=== PATIENT | female | born 1960 | race Caucasian/White ===

== ENCOUNTER 2016-10-26 09:52 | Inpatient (IN) | payer MEDICAID ==
[~2016-10-26] VITALS: Ht 165.1 cm; Wt 71.6 kg
[2016-10-26] VITALS (8 sets, daily range): BP systolic 145–179; BP diastolic 72–83; PULSE 90–109; RESP 14–20; TEMP 97–97.8; O2SAT 90–95; Ht 165.1 cm; Wt 71.6 kg
[~2016-10-26 09:52] MED LIST: ARIP20TA2 PO; ESTR0.6261 PO; ESZO3TAB PO; HYDR-2122 PO; LAMO200T6 PO; OXYC1TAB PO; PRAZ2CAP26 PO
--- OUTSIDE RECORDS SUMMARY | 2016-10-26 10:03 | XMS REPORT ---
Author Author Edith Taylor [facility] eClinicalWorks Address Unknown Phone Unavailable Care Team Providers Care Kiln Remover Name Role Phone Edith Taylor CP Unavailable Allergies, Adverse Reactions, Alerts Substance Reaction Event Type Septra Info Not Available Drug Allergy Codeine Sulfate side effects Drug Allergy Bactrim Info Not Available Drug Allergy Problems Problem Type Condition ICD-9 Code Onset Dates Condition Status Assessment Posttraumatic stress disorder 309.81 Active Assessment Dissociative identity disorder 300.14 Active Assessment Bipolar I disorder, most recent episode (or current) mixed, moderate 296.62 Active Assessment Borderline personality disorder 301.83 Active Medications Medication Code System Code Instructions Start Date End Date Status Dosage Prazosin HCl [facility] [address]-51 2 MG Orally take by mouth at bedtime Active 1 capsule Vistaril [facility] [address]-12 50 MG Orally by mouth three times a day PRN for anxiety (Take with a 25mg cap to=75mg up to 3 times a day PRN only Active 1 capsule Abilify [facility] [address]-57 20 MG Orally once a day in the morning Active 1 tablet Lamotrigine [facility] [address]-97 200 MG Orally Take by moth at 8am and H.S. for mood stabilization Active 1 tablet Premarin [facility] [address]-44 0.625mg Orally daily - dosage unknown Active 1 tablet Ventolin HFA [facility] [address]-34 108 (90 Base) MCG/ACT Inhalation every 4 hrs Active 2 puffs as needed BusPIRone HCl [facility] [address]-84 15 MG Orally Twice a day Active 1 tablet Lunesta [facility] [address]-58 3 MG Orally Once a day at bedtime Active 1 tablet immediately before bedtime HydrOXYzine Pamoate [facility] [address]-35 25 MG Orally three times a day as needed - only for anxiety. Take with 50mg caps to equal 75mg three times daily Active 1 capsule Oxycodone-Acetaminophen [facility] [address]-99 10-325 MG Orally three times daily PRN for pain Active 1 tablet as needed Procedures Procedure Coding System Code Date OFFICE VISIT, EST-MOD. COMPLEXITY (25 MIN) CPT-4 53678 Sep 02, 2014 Vital Signs Date/Time: Sep 02, 2014 Height 64.6 inches Weight 146 lbs Temperature 98.3 F Blood Pressure Diastolic 82 mm Hg Blood Pressure Systolic 133 mm Hg Cardiac Monitoring Heart Rate 104 Beats per Minute BMI 24.59 Index Respiratory Rate 16 per Minute Results No Known Results Summary Purpose eClinicalWorks Submission
--- OUTSIDE RECORDS SUMMARY | 2016-10-26 10:07 | XMS REPORT ---
Author Author Edith Taylor Organization [employer] Address Unknown Phone Unavailable Care Team Providers Care Social Sciences Chair Name Role Phone Edith Taylor CP Unavailable Allergies No Known Allergies Problems Problem Type Condition Code Onset Dates Condition Status Problem Bipolar disorder, current episode mixed, moderate F31.62 Active Problem Dissociative identity disorder F44.81 Active Problem Nicotine dependence, cigarettes, uncomplicated F17.210 Active Problem Post-traumatic stress disorder, chronic F43.12 Active Problem Borderline personality disorder F60.3 Active Problem Tobacco use disorder 305.1 Active Medications Medication Code System Code Instructions Start Date End Date Status Dosage Lexapro [facility] [address]-89 10 MG Orally Once a day Jun 09, 2015 1 tablet in the am for depression/anxiety Results No Known Results Summary Purpose eClinicalWorks Submission
--- OUTSIDE RECORDS SUMMARY | 2016-10-26 10:07 | XMS REPORT | Summary of Care ---
Author Author Gary Jean M.D. Organization Unknown Address [address] [place] [address] [place] [address] Phone Unavailable Care Team Providers Care Silk Hanger Name Role Phone Gary Jean M.D. 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 * Refills: 0 Cho M.D., Gary Luciano Start 15-Jul-2016 Active Prazosin HCl - 2 MG Oral Capsule 1-2 capsule by mouth at bedtime. * Refills: 0 Cho M.D., Gary Luciano Start 15-Jul-2016 Active BusPIRone HCl - 15 MG Oral Tablet 1/2 tab BID * Refills: 0 Cho M.D., Gary Luciano Start 15-Jul-2016 Active TraZODone HCl - 50 MG Oral Tablet 1-2 tablet at bedtime * Refills: 0 Cho M.D., Gary Luciano Start 15-Jul-2016 Active Abilify 30 MG Oral Tablet TAKE 1 TABLET DAILY. * Refills: 0 Cho M.D., Gary Luciano Start 15-Jul-2016 Active LamoTRIgine 200 MG Oral Tablet TAKE 1 TABLET TWICE DAILY. * Refills: 0 Cho M.D., Gary * Start 15-Jul-2016 Active Vistaril 50 MG Oral Capsule TAKE 1 CAPSULE 3 TIMES DAILY NEEDED. * Refills: 0 Cho M.D., Gary * Start 15-Jul-2016 Active Lexapro 10 MG Oral Tablet TAKE 1 TABLET DAILY. * Refills: 0 Cho M.D., Gary * Start 15-Jul-2016 Active Ciprofloxacin HCl - 500 MG Oral Tablet take 1 tablet before cysto procedure with Dr. Jean. * Quantity: 1 Refills: 0 Cho M.D., Gary * Start 02-Aug-2016 Active Allergies and Adverse Reactions Name Dates Details Bactrim (Allergy) Status: Active codeine (Allergy) Status: Active meloxicam (Allergy) Status: Active Septra TABS (Allergy) Status: Active Procedures Procedure Dates Details History of Neck Surgery History of Hysterectomy Procedures not documented Immunization Name Dates Details Immunizations not documented Family History Name Dates Details Family history of schizophrenia (V17.0, Z81.8) Status: Active Name Dates Details Family history of depression (V17.0, Z81.8) Status: Active Social History Name Dates Details - Status: Name Dates Details Smoker. current status unknown Vital Signs Date Test Result Details No Known Vitals to report Results Date Description Value Details Results not documented Plan of Care Name Dates Details Planned Observations Planned Goals not documented Instructions Name Dates Details Instructions not documented Encounters Appointment; Gary Jean M.D. Encounter Diagnosis: Problem not documented On 29-Jul-2016 10:00
--- OUTSIDE RECORDS SUMMARY | 2016-10-26 10:11 | XMS REPORT ---
Author Author Omi Rivera Organization [employer] Address Unknown Phone Unavailable Care Team Providers Care Server Programmer Name Role Phone Omi Rivera CP Unavailable Allergies No Known Allergies Problems [...] Instructions Start Date End Date Status Dosage Ventolin HFA [facility] [address]-98 108 (90 Base) MCG/ACT Inhalation every 4-6 hours as needed 2 puffs as needed Results No Known Results Summary Purpose eClinicalWorks Submission
--- OUTSIDE RECORDS SUMMARY | 2016-10-26 10:11 | XMS REPORT ---
Author Author Edith Taylor Organization [employer] Address Unknown Phone Unavailable Care Team Providers Care Acquisition Lead Name Role Phone Edith Taylor CP Unavailable [...] Start Date End Date Status Dosage Lexapro [facility] [address]-82 10 MG Orally Once a day Jun 09, 2015 1 tablet in the am for depression/anxiety Abilify [facility] [address]-95 30 MG Orally once a day in the morning 1 tablet Results No Known Results Summary Purpose eClinicalWorks Submission
--- OUTSIDE RECORDS SUMMARY | 2016-10-26 10:11 | XMS REPORT | Continuity of Care Document ---
Author Author [facility] Organization [facility] Address Unknown Phone Unavailable Allergies Medications Problems Procedures Results Encounters ACCT No. Visit Date/Time Discharge Status Pt. Type Provider Facility Loc./Unit Complaint [id number] 09/02/2015 00:00:00 2015 00:00:00 [facility] Emergency [facility] W.EDS
--- OUTSIDE RECORDS SUMMARY | 2016-10-26 10:13 | XMS REPORT ---
Author Author Omi Rivera Organization [employer] Address Unknown Phone Unavailable Care Team Providers Care Farm Equipment Maintenance Supervisor Name Role Phone Omi Rivera CP Unavailable Allergies, Adverse Reactions, Alerts Substance Reaction Event Type Septra Info Not Available Drug Allergy Meloxicam Swelling Drug Allergy Codeine Sulfate side effects Drug Allergy Bactrim Info Not Available Drug Allergy Problems Problem Type Condition Code Onset Dates Condition Status Assessment Hyperkalemia E87.5 Active Problem Tobacco use disorder 305.1 Active Problem Post-traumatic stress disorder, chronic F43.12 Active Problem Bipolar disorder, unspecified F31.9 Active Problem Major depressive disorder, single episode, unspecified F32.9 Active Problem Interstitial cystitis (chronic) without hematuria N30.10 Active Problem Dissociative identity disorder F44.81 Active Problem Borderline personality disorder F60.3 Active Problem Nicotine dependence, cigarettes, uncomplicated F17.210 Active Problem Bipolar disorder, current episode mixed, moderate F31.62 Active Assessment Bipolar disorder, unspecified F31.9 Active Assessment Encounter for immunization Z23 Active Assessment Encounter for screening for lipoid disorders Z13.220 Active Assessment Encounter for screening mammogram for malignant neoplasm of breast Z12.31 Active Assessment Major depressive disorder, single episode, unspecified F32.9 Active Assessment Interstitial cystitis (chronic) without hematuria N30.10 Active Assessment Tobacco use Z72.0 Active Medications Medication Code System Code Instructions Start Date End Date Status Dosage Vistaril [facility] [address]-49 50 MG Orally by mouth three times a day PRN for anxiety 1 capsule Trazodone HCl [facility] [address]-56 50 MG Orally Once a day Jun 09, 2015 1-2 tablet at bedtime as needed Abilify [facility] [address]-33 30 MG Orally once a day in the morning 1 tablet Lexapro [facility] [address]-59 10 MG Orally Once a day Jun 09, 2015 1 tablet in the am for depression/anxiety Premarin [facility] [id number] 0.625 TAKE 1 TABLET BY MOUTH DAILY BusPIRone HCl [facility] [address]-72 15 MG Orally Twice a day 1/2 tablet Prazosin HCl [facility] [address]-28 2 MG Orally take by mouth at bedtime 1-2 capsule Lamotrigine [facility] [address]-99 200 MG Orally Take by mouth at 8am and H.S. for mood stabilization 1 tablet Ventolin HFA [facility] [address]-68 108 (90 Base) MCG/ACT Inhalation every 4-6 hours as needed 2 puffs as needed Procedures Procedure Coding System Code Date ADMINISTRATION, 1ST IMMUNIZATION CPT-4 29211 Jul 11, 2016 OFFICE VISIT, EST-LOW COMPLEXITY (15 MIN.) CPT-4 17127 Jul 11, 2016 Fluzone/Fluarix IIV4 Pfree (age 3yr & older) CPT-4 23815 Jul 11, 2016 Vital Signs Date/Time: Jul 11, 2016 Temperature 97.8 F Height 64.6 in Weight 149.0 lbs Blood Pressure Diastolic 88 mm Hg Blood Pressure Systolic 148 mm Hg Cardiac Monitoring Heart Rate 90 /min BMI 25.10 Index Oximetry 96 % Respiratory Rate 16 /min Results No Known Results Immunizations Vaccine Administration Date Fluzone/Fluarix IIV4 Pfree (age 3yr & older) Jul 11, 2016 Summary Purpose eClinicalWorks Submission
--- OUTSIDE RECORDS SUMMARY | 2016-10-26 10:13 | XMS REPORT | Referral Summary ---
Author Author [facility] Organization [facility] Address Unknown Phone Unavailable Care Team Providers Care Epic Director Name Role Phone Tarik Stuart Primary Care Physician [phone] Encounter VC Date(s): 06/15/15 - 06/15/15 [facility], [address] [place] [address]- Discharge Diagnosis: Chronic insomnia Discharge Diagnosis: Lumbago Discharge Diagnosis: Hormone replacement therapy (HRT) Discharge Disposition: 01-Home or Self Care Attending Physician: Louis Stuart MD Admitting Physician: Louis Stuart MD Vital Signs Most recent to 1 oldest [Reference Range]: Temperature Tympanic 36.1 degC [36.6-38.1 degC] *LOW* (06/15/15 9:07 AM) Blood Pressure 112/56 mmHg [90-140/60-90 mmHg] (06/15/15 9:07 AM) Problem List Condition Effective Dates Status Health Status Informant Anxiety Active disorder(Confirmed) Bipolar Active disorder(Confirmed) Cervical spondylosis Active with myelopathy(Confirmed ) cervicalgia(Confirme Active d) Degenerative disc Active disease(Confirmed) Depression(Confirmed Active ) Low back Active pain(Confirmed) Lumbar Active spondylosis(Confirme d) Allergies, Adverse Reactions, Alerts Substance Reaction Severity Status nitrofurantoin Active sulfamethoxazole Active Medications Abilify See Instructions, Daily, 0 Refill(s) Start Date: 05/05/14 Status: Ordered lamoTRIgine 25 mg oral tablet tabs, Oral, BID, 0 Refill(s) Start Date: 05/05/14 Status: Ordered Lunesta 3 mg oral tablet 1 tabs, Oral, Bedtime (once a day), as needed for insomnia, 0 Refill(s) Start Date: 07/17/14 Status: Ordered Percocet 10/325 oral tablet 1 tabs, Oral, q8hr, as needed for pain, NEEDS MED CHECK APPT, # 50 tabs, 0 Refill(s) Start Date: 05/28/15 Status: Ordered prazosin 2 mg oral capsule 1 caps, Oral, Bedtime (once a day), 0 Refill(s) Start Date: 07/17/14 Status: Ordered Premarin 0.625 mg oral tablet See Instructions, TAKE 1 TABLET BY MOUTH EVERY DAY., # 30 unknown unit, 2 Refill (s), eRx: [facility] [id number], TAKE 1 TABLET BY MOUTH EVERY DAY. Start Date: 04/27/15 Status: Ordered Ventolin HFA 90 mcg/inh inhalation aerosol See Instructions, INHALE 2 PUFF BY INHALATION ROUTE EVERY 4 - 6 HOURS NEEDED , # 1 unknown unit, eRx: [facility] [id number], INHALE 2 PUFF BY INHALATION ROUTE EVERY 4 - 6 HOURS NEEDED Start Date: 05/29/15 Status: Ordered Results No data available for this section Immunizations No data available for this section Procedures Procedure Date Related Diagnosis Body Site Colonoscopy 12/15/11 Cystoscopy 03/25/11 Urethral dilatation and calibration 03/25/11 Surgery of neck with plates and screws 1999 Hysterectomy 1995 Surgery of neck with plates and screws 1992 Social History Social History Type Response Smoking Status Former smoker Assessment and Plan Extracted from: Title: Office Visit Note Author: Louis Stuart MD Date: 06/15/15 Assessment/Plan Chronic insomnia Hormone replacement therapy (HRT) Lumbago Plan: We discussed the need for yearly mammograms or routine mammograms since you are on HRT. Wehave encouraged you to make an appointment with the [facility]ogram. I discussed the need to find a new primary care doctor and thatyou needevery 3 month med checkups. Continue all current medications. Call if youhave any problems prior to day here at the clinic which is August 06 2015.
[2016-10-26] MEDS ORDERED: ALBUTEROL/IPRATROPIUM INHAL. 2.5mg-0.5mg/3ml Neb. AEROSOL ONE (10:15)
--- NOTE | 2016-10-26 10:15 | ERPDOC ---
Departure Disposition Decision Date: Oct 26, 2016 Disposition Decision Time: 12:56 Disposition: 02 TO [facility] Impression Impression Impression: Primary Impression: Pneumonia Pneumonia type: due to unspecified organism Laterality: right Lung location : lower lobe of lung Qualified Codes: J18.1 - Lobar pneumonia, unspecified organism Additional Impression: COPD exacerbation Severity: Moderate Condition: Improved Seen By: Physician only Referrals: DAVID HODGES DO Problems/Meds/Labs Reviewed?: Yes Medications reviewed and manag: Yes Follow up care ordered?: Yes Mental Status: Alert, Oriented HPI - Cough/URI General Chief Complaint: Cough,Fever,Flu,URI Stated Complaint: DIFF BREATHING Time Seen by Provider: 09:53 Source: patient (Patient presents to the ER with a 2-3 day conplaint of cough and congestion, with worsening exertional dyspnea. ) Exam Limitations: no limitations HPI - Cough/URI Occurred At: home Onset/Timing: Changing over time Duration: 1 week Pain/Severity Scale: Now & Worst: 0/10 Prior Episodes/Possible Cause: occasional episodes Modifying Factors: IMPROVES WITH: inhaler, oxygen, rest, WORSE WITH: activity, coughing Associated Symptoms: cough, fever/chills, other, shortness of breath, wheezing , DENIES: chest pain/soreness, dizziness, earache, facial pain, headache, lightheadedness, muscle aches, nasal congestion, nasal drainage, sinus infection , sore throat Allergies: Coded Allergies: Sulfa (Sulfonamide Antibiotics) (Verified Allergy, Intermediate, HIVES, ) codeine (Verified Allergy, Intermediate, NAUSEA,PAIN, 10/26/16) nitrofurantoin (Verified Allergy, Intermediate, HIVES,STOMACH PAIN, ) naproxen (Verified Allergy, Mild, NAUSEA, 10/26/16) Past History Past Medical History Female: other Musculoskeletal: back pain, neck pain Psychological: bipolar, depression, personality disorder Surgical History General: neck Reproductive/: hysterectomy Family History Family PMH: FOUND: other Vaccines Hx Influenza Vaccination: No Hx Pneumococcal Vaccination: No Social History Smoking Status: Current some day smoker Does patient use chewing tobac: No Second Hand Exposure: No Substance Use Type: does not use Alcohol Intake: none Marital Status: Single Sexuality: male partner Housing: house Household Members: significant other Service: No Occupational Hazard: No Advance Directives: Yes Full Code Record Review Pertinent history updated: Yes Review of Systems Constitutional Constitutional: fever, DENIES: chills Eyes Lids/Accessories: DENIES: erythema, swelling ENMT Ears: DENIES: erythema, pain Balance: DENIES: ataxia, vertigo Sinuses: DENIES: congestion, rhinorrhea Mouth/Throat: DENIES: sore throat Cardiovascular Cardiac: DENIES: chest pain, dyspnea on exertion, orthopnea Rhythm/Rate: DENIES: tachycardia Pulmonary Respiratory: DENIES: cough, dyspnea, sputum GI Upper Abdomen: DENIES: nausea, pain, vomiting Lower Abdomen: DENIES: constipation, diarrhea, pain General: DENIES: dysuria Musculoskeletal General: DENIES: cramps, pain, weakness Integumentary Skin: DENIES: color change, itching, rash Neurological General: DENIES: ataxia, change in strength, headache, numbness, poor coordination, seizures, syncope, vertigo, weakness Psychiatric Psychiatric: DENIES: anxiety, depression, nervousness Hematologic/Lymphatic Hematologic/Lymphatic: DENIES: anemia Allergic/Immunological Allergic/Immunoligical: DENIES: sneezing All other Systems All Other Systems: Reviewed and Negative Physical Exam General General Nourishment: well nourished, well developed, appears stated age, adult , thin General Body Habitus: well groomed Vitals and Pain First Documented Vital Signs Date Time Temp Pulse Resp B/P Pulse Ox O2 Delivery O2 Flow Rate FiO2 10/26/16 09:55 97.8 122 24 180/99 91 Room Air 10/26/16 09:58 2.00 Weight: Kilograms: 67.600 Height (feet): 5 Height (inches): 5.00 Triage Pain Scale: RN VS reviewed by Provider: Yes Eyes (brief) Eyes Brief: found: EOMI, PERRL ENMT (brief) ENMT Brief: FOUND: TM clear, TM good light reflex, mucosa moist, NOT FOUND: pharnyx erythema Neck (brief) Neck: FOUND: trachea midline, NOT FOUND: adenopathy, nuchal rigidity, tenderness, tracheal deviation Respiratory Inspection: FOUND: increased effort, NOT FOUND: asymmetry, audible stridor, audible wheezing Palpation: NOT FOUND: tenderness Auscultation: FOUND: decreased, rhonchi, wheezes Cardiovascular (brief) Cardiac: FOUND: regular rhythm, NOT FOUND: pedal edema, regular rate ( tachycardia) Capillary Refill: <2 sec Pulses: all distal extremities, equal, strong Abdomen (brief) Abdominal Brief: FOUND: bowel normo active x4, soft, NOT FOUND: distended, tender Lymphatic (brief) Lymphatic Brief: NOT FOUND: adenopathy Musculoskeletal (brief) Musculoskeletal Brief: NOT FOUND: spasm, tenderness Integumentary (brief) Integumentary Brief: FOUND: pink, warm Neurologic (brief) Neurological Brief: FOUND: CN w/o gross def to obs, gait w/o gross def to obs, motor-no gross deficits, sensory-no gross deficits, NOT FOUND: ataxia Psychiatric (brief) Psychiatric Brief: FOUND: alert, attentive, normal affect, oriented Differential Diagnoses Differential Diagnoses Considering: Acute Bronchitis, Asthma Exacerbation, COPD Exacerbation, Influenza, Pneumonia, URI, Viral Syndrome, Other Progress Results/Orders Orders Procedure Category Date Status Time Bmp - Basic Metabolic LAB 10/26/16 Complete Panel 10:09 Blood Gas, Arterial - LAB 10/26/16 Complete ABG 10:09 Probnp LAB 10/26/16 Complete 10:09 Cbc W/Auto LAB 10/26/16 Complete Diff-Reflex Manual 10:09 Blood Culture CLAUDIA 10/26/16 In Process 10:09 Troponin I W LAB 10/26/16 Complete Hemolysis Index 10:09 Influenza A/B Screen LAB 10/26/16 Complete 10:09 EKG EKG 10/26/16 Taken 10:09 Chest 1 View RAD 10/26/16 Resulted 10:09 Iv Lock (Ed Only) EDM 10/26/16 Transmitted 10:09 Albuterol/Ipratropium PHA 10/26/16 Complete (Duoneb) 10:15 Methylprednisolone PHA 10/26/16 Complete Sod Succ (Solu-Medrol 10:15 Oxygen Administration EDM 10/26/16 Transmitted 10:09 Lactate - Lactic Acid LAB 10/26/16 Complete Procalcitonin LAB 10/26/16 Complete 10:09 Normal Saline (Normal PHA 10/26/16 Complete Saline Iv) 10:[address] 10/26/16 Resulted Iohexol (Omnipaque) PHA 10/26/16 Complete 12:11 Normal Saline (Ns) PHA 10/26/16 Complete 12:11 Saline Flush (Iv PHA 10/26/16 Complete Flush) 12:11 Ceftriaxone (Rocephin) PHA 10/26/16 Complete 13:00 Doxycycline PHA 10/26/16 Complete (Vibramycin) 14:00 Lab Results Laboratory Tests Test 10/26/16 10:24 10/26/16 10:31 10/26/16 10:55 White Blood Count 19.6T/MM3 Red Blood Count 4.81M/MM3 Hemoglobin 14.6GM/DL Hematocrit 43.7% Mean Corpuscular Volume 90.9UM3 Mean Corpuscular Hemoglobin 30.4UUG Mean Corpuscular Hemoglobin Concent 33.4GM/DL RDW Standard Deviation 41.7FL Platelet Count 240T/MM3 Mean Platelet Volume 10.3UM3 Immature Granulocyte % (Auto) % Neutrophils (%) (Auto) % Lymphocytes (%) (Auto) % Monocytes (%) (Auto) % Eosinophils (%) (Auto) % Basophils (%) (Auto) % Absolute Immature Granulocyte (auto T/MM3 Absolute Neutrophils (auto) T/MM3 Absolute Lymphocytes (auto) T/MM3 Absolute Monocytes (auto) T/MM3 Absolute Eosinophils (auto) T/MM3 Absolute Basophils (auto) T/MM3 Neutrophils % (Manual) 81.0% Band Neutrophils % 7.0% Lymphocytes % (Manual) 8.0% Monocytes % (Manual) 4.0% Absolute Neutrophils (Manual) 15.9T/MM3 Band Neutrophils # 1.4T/MM3 Lymphocytes # (Manual) 1.6T/MM3 Monocytes # (Manual) 0.8T/MM3 Toxic Granulation 1+ Toxic Vacuolation 1+ Red Cell Morphology Comment Normal Turbidity < 20 Sodium Level 139MEQ/L Potassium Level 3.7MEQ/L Chloride Level 100MEQ/L Carbon Dioxide Level 25MEQ/L Anion Gap 14MEQ/L Blood Urea Nitrogen 11.0MG/DL Creatinine 0.7MG/DL Glomerular Filtration Rate Calc 87 BUN/Creatinine Ratio 16RATIO Glucose Level 148MG/DL Calculated Osmolality 270MOSM/KG Calcium Level 9.6MG/DL Icterus Index < 2 Troponin I < 0.012ng/ml OW-Iwr-X-Type Natriuretic Peptide 389PG/ML Plasma Lactate 0.9MMOL/L Procalcitonin 0.07NG/ML Chemistry Specimen Hemolysis 16 Influenza Type A Antigen Negative Influenza Type B Antigen Negative Arterial Blood pH 7.392 Arterial Blood Partial Pressure CO2 39MMHG Arterial Blood pO2 at Patient Temp 64MMHG Arterial Blood HCO3 24MEQ/L Arterial Blood Total CO2 25MEQ/L Arterial Blood Oxygen Saturation 92.0% Arterial Blood Base Excess -1.0MMOL/L Oxygen Delivery Method (LAB) Nasal cannula,liters Blood Gas Oxygen Liter Flow 2 Blood Gas Oxygen Percent Given Blood Gas Vent Rate Blood Gas Tidal Volume ML Medications Current ED Medications Albuterol/ Ipratropium (Duoneb) 3 ml O ONCE AEROSOL Last administered on 10:26; Start 10/26/16 at 10:15; Stop 10/26/16 at 10:16; Status DC Methylprednisolone Sodium Succinate 125 mg 125 mg O ONCE IV Last administered on 10/26/16 10:31; Start 10/26/16 at 10:15; Stop 10/26/16 at 10:16; Status DC Sodium Chloride (Normal Saline IV) 1,000 ml @ 0 mls/hr Q0M ONCE IV Last administered on 10/26/16 10:31; Start 10/26/16 at 10:30; Stop 10/26/16 at 10:31 ; Status DC Iohexol 1 bottle 1 bottle STK-MED ONCE .ROUTE ; Start 10/26/16 at 12:11; Stop at 12:12; Status DC Sodium Chloride (NS) 100 ml @ As Directed STK-MED ONCE .ROUTE ; Start 10/26/16 at 12:11; Stop 10/26/16 at 12:12; Status DC Sodium Chloride 10 ml 10 ml STK-MED ONCE .ROUTE ; Start 10/26/16 at 12:11; Stop 10/26/16 at 12:12; Status DC Sodium Chloride (Normal Saline IV) 1,000 ml @ 75 mls/hr [id number] IV Last administered on 10/27/16 16:49; Start 10/26/16 at 12:50; Stop 10/27/16 at 21:15 ; Status DC Progress Progress Patient resting comfortably, continues to complain of SOA Patient Oxygen saturation drop to approx 88% when off oxygen EKG EKG : Rate: >100 Rhythm: sinus [place]: normal QRS: normal Intervals: normal ST/T: non-specific changes Interpreted by: signing physician EKG ScImage/Pico EKG interpreted in ScImage/Pic: No Consult/PCP Consult/PCP : Physician Contacted: Dr. Hodges Time Arrived: 12:44 Discussion Details In ER to Evaluate the paitent Discussed patient examination, Labs, CXR, EKG Comments ADMIT Inpatient Doxycycline and Rocephin Xray Xray : Reason for Exam: Dyspnea Xray: CXR Portable Interpretation: Normal, Reviewed Written Report REGAN RENE DO Oct 26, 2016 10:15 at 12:12; Status DC Sodium Chloride (NS) 100 ml @ As Directed STK-MED ONCE .ROUTE ; Start 10/26/16 at 12:11; Stop 10/26/16 at 12:12; Status DC Sodium Chloride (Iv Flush) 10 ml STK-MED ONCE .ROUTE ; Start 10/26/16 at 12:11; Stop 10/26/16 at 12:12; Status DC Ceftriaxone Sodium 1 g 1 g O ONCE IM ; Start 10/26/16 at 13:00; Stop 10/26/16 at 13:01 Doxycycline Hyclate/Sodium Chloride (Vibramycin/NS) 250 ml @ 250 mls/hr Q12HR IV ; Start 10/26/16 at 21:00 Progress Progress Patient resting comfortably, continues to complain of SOA Patient Oxygen saturation drop to approx 88% when off oxygen EKG EKG : Rate: >100 Rhythm: sinus [place]: normal QRS: normal Intervals: normal ST/T: non-specific changes Interpreted by: signing physician EKG ScImage/Picomm EKG interpreted in ScImage/Pic: No Consult/PCP Consult/PCP : Physician Contacted: Dr. Hodges Time Arrived: 12:44 Discussion Details In ER to Evaluate the paitent Discussed patient examination, Labs, CXR, EKG Comments ADMIT Inpatient Doxycycline and Rocephin Xray Xray : Reason for Exam: Dyspnea Xray: CXR Portable Interpretation: Normal, Reviewed Written Report REGAN RENE DO Oct 26, 2016 10:15
--- OUTSIDE RECORDS SUMMARY | 2016-10-26 10:15 | XMS REPORT ---
Author Author Jalen Grewal [employer] Address Unknown Phone Unavailable Care Team Providers Care Implementation Services Analyst Name Role Phone Jalen Grewal CP Unavailable Allergies, Adverse Reactions, Alerts Substance Reaction Event Type Septra Info Not Available Drug Allergy Meloxicam Swelling Drug Allergy Codeine Sulfate side effects Drug Allergy Bactrim Info Not Available Drug Allergy Problems Problem Type Condition Code Onset Dates Condition Status Assessment Borderline personality disorder F60.3 Active Assessment Bipolar disorder, current episode mixed, moderate F31.62 Active Assessment Major depressive disorder, single episode, unspecified F32.9 Active Assessment Post-traumatic stress disorder, chronic F43.12 Active Assessment Dissociative identity disorder F44.81 Active Problem Nicotine dependence, cigarettes, uncomplicated F17.210 Active Problem Bipolar disorder, current episode mixed, moderate F31.62 Active Problem Major depressive disorder, single episode, unspecified F32.9 Active Problem Tobacco use disorder 305.1 Active Problem Post-traumatic stress disorder, chronic F43.12 Active Problem Dissociative identity disorder F44.81 Active Problem Borderline personality disorder F60.3 Active Medications Medication Code System Code Instructions Start Date End Date Status Dosage Prazosin HCl [facility] [address]-26 2 MG Orally take by mouth at bedtime 1-2 capsule Trazodone HCl [facility] [address]-57 50 MG Orally Once a day Jun 09, 2015 1-2 tablet at bedtime as needed Lamotrigine [facility] [address]-99 200 MG Orally Take by mouth at 8am and H.S. for mood stabilization 1 tablet Premarin [facility] 79803436107 0.625 TAKE 1 TABLET BY MOUTH DAILY BusPIRone HCl [facility] [address]-51 15 MG Orally Twice a day 1/2 tablet Lexapro [facility] [address]-28 10 MG Orally Once a day Jun 09, 2015 1 tablet in the am for depression/anxiety Vistaril [facility] [address]-63 50 MG Orally by mouth three times a day PRN for anxiety 1 capsule Abilify [facility] [address]-43 30 MG Orally once a day in the morning 1 tablet Ventolin HFA [facility] [address]-66 108 (90 Base) MCG/ACT Inhalation every 4-6 hours as needed 2 puffs as needed Procedures Procedure Coding System Code Date OFFICE VISIT, EST-MOD. COMPLEXITY (25 MIN) CPT-4 89405 Jun 03, 2016 Vital Signs Date/Time: Jun 03, 2016 Temperature 98.5 F Height 64.6 in Weight 147 lbs Blood Pressure Diastolic 76 mm Hg Blood Pressure Systolic 124 mm Hg Cardiac Monitoring Heart Rate 90 /min BMI 24.76 Index Respiratory Rate 18 /min Results No Known Results Summary Purpose eClinicalWorks Submission
--- OUTSIDE RECORDS SUMMARY | 2016-10-26 10:16 | XMS REPORT ---
Author Omi Sanchez Organization [employer] Address Unknown Phone Unavailable Care Team Providers Care Trestle Mainternance Laborer Name Role Phone Omi Rivera CP Unavailable Allergies No Known Allergies Problems Problem Type Condition Code Onset Dates Condition Status Assessment Hyperkalemia E87.5 Active Problem Tobacco use disorder 305.1 Active Problem Post-traumatic stress disorder, chronic F43.12 Active Assessment Interstitial cystitis (chronic) without hematuria N30.10 Active Assessment Encounter for screening for lipoid disorders Z13.220 Active Problem Bipolar disorder, unspecified F31.9 Active Problem Major depressive disorder, single episode, unspecified F32.9 Active Problem Interstitial cystitis (chronic) without hematuria N30.10 Active Problem Dissociative identity disorder F44.81 Active Problem Borderline personality disorder F60.3 Active Problem Nicotine dependence, cigarettes, uncomplicated F17.210 Active Problem Bipolar disorder, current episode mixed, moderate F31.62 Active Medications Medication Code System Code Instructions Start Date End Date Status Dosage Ventolin HFA [facility] [address]-87 108 (90 Base) MCG/ACT Inhalation every 4-6 hours as needed 2 puffs as needed Vistaril [facility] [address]-27 50 MG Orally by mouth three times a day PRN for anxiety 1 capsule Trazodone HCl [facility] [address]-24 50 MG Orally Once a day Jun 09, 2015 1-2 tablet at bedtime as needed Premarin [facility] 98877980401 0.625 TAKE 1 TABLET BY MOUTH DAILY Prazosin HCl [facility] [address]-12 2 MG Orally take by mouth at bedtime 1-2 capsule Lamotrigine [facility] [address]-00 200 MG Orally Take by mouth at 8am and H.S. for mood stabilization 1 tablet Lexapro [facility] [address]-98 10 MG Orally Once a day Jun 09, 2015 1 tablet in the am for depression/anxiety Abilify [facility] [address]-67 30 MG Orally once a day in the morning 1 tablet BusPIRone HCl [facility] [address]-80 15 MG Orally Twice a day 1/2 tablet Procedures Procedure Coding System Code Date TSH CPT-4 06230 Jul 11, 2016 CREATININE-MICROALB/CREAT RATION URINE CPT-4 23747 Jul 11, 2016 COMPLETE CBC W/AUTO DIFF WBC CPT-4 67222 Jul 11, 2016 URINALYSIS WITH MICROSCOPIC CPT-4 67291 Jul 11, 2016 MICROALBUMIN- MICRO ALB/CREAT RATIO [facility]-4 76201 Jul 11, 2016 COMPREHENSIVE METABOLIC PANEL [facility]-4 63136 Jul 11, 2016 Results Name Result Date Reference Range Unit Abnormality Flag TSH ----TSH 0.79 [id number] 0.35-4.94 uIU/mL Micro Albumin/Creatinine Ratio, Urine ----Creatinine mg/dL, Urine 22 59204827 mg/dL ----Alb/Creat Ratio, Urine NA [id number] 0.0-29.0 mg/g ----Albumin mg/dL, Urine <0.5 40267909 0.0-1.7 mg/dL CBC With Platelet and Differential ----Absolute Eosinophils 0.13 58787053 0.00-0.50 10*3 ----Absolute Monocytes 0.65 55699375 0.30-1.00 10*3 ----Neutrophils 52 27730868 51-75 % ----Absolute Basophils 0.03 57050804 0.00-0.20 10*3 ----MPV 10.2 37152451 8.8-14.8 fL ----Monocytes 8 19075417 4-11 % ----RDW 11.7 16611285 11.5-14.5 % ----Lymphocytes 38 55068656 20-46 % ----MCHC 34.1 48975574 32.0-36.0 g/dL ----MCH 30.3 52336103 27.0-32.0 pg ----MCV 89.0 03165699 82.0-99.0 fL ----Immature Granulocytes 0.1 46840491 0.0-1.0 % ----Platelet Count 309 76224285 150-400 K/uL ----Absolute Lymphocytes 3.13 91876497 0.80-3.30 10*3 ----Absolute Neutrophils 4.36 78939416 1.90-7.00 10*3 ----Eosinophils 2 51302209 0-4 % ----Basophils 0 26405378 0-2 % ----WBC 8.3 32493728 4.8-10.8 K/uL ----RBC 4.62 15655175 4.00-5.20 10*6/uL ----HGB 14.0 67402405 12.0-16.0 g/dL ----HCT 41.1 34642994 37.0-47.0 % Comprehensive Metabolic Panel (CMP) ----Chloride 101 61552843 99-111 mEq/L ----Potassium 3.8 85185303 3.5-5.2 mEq/L ----Albumin 4.7 47135695 3.5-5.0 g/dL ----CO2 30 53256175 22-31 mEq/L ----Alkaline Phosphatase 81 20737321 40-150 U/L ----Protein 7.0 75749936 6.1-7.7 g/dL ----Bilirubin Total 0.6 68433710 0.2-1.2 mg/dL ----Anion Gap 8 15333803 3-20 ----Calcium 9.7 09518066 8.9-10.5 mg/dL ----Globulin 2.3 51002641 1.8-4.0 g/dL ----Sodium 139 08475525 135-144 mEq/L ----BUN 9 31987325 10-20 mg/dL L ----ALT (SGPT) 30 89864754 0-55 U/L ----AST (SGOT) 23 27731716 5-34 U/L ----Creatinine 0.63 13454562 0.57-1.11 mg/dL ----Glucose 119 68642604 70-99 mg/dL H Urinalysis with Microscopic ----Bilirubin Negative 06344220 Negative ----Nitrites Negative 67795927 Negative ----Protein Negative 84334906 Negative ----Blood Negative 96559122 Negative ----Ketones Negative 26638596 Negative ----Glucose, Urine Negative 22299661 Negative ----Color Yellow 32854542 ----Appearance Clear 20160711 ----WBC, Urine 0-2 26017576 0-4 /HPF ----Epithelial Cells 2-5 33368903 /HPF ----pH 7.0 93312009 5.0-8.0 ----Urobilinogen 0.2 55117580 <1.0 mg/dL ----Leukocyte Esterase Negative 20160711 Negative ----RBC, Urine 0-4 90190204 0-4 /HPF ----Specific [place] 1.012 20160711 1.003-1.030 eGFR ----eGFR >60 57389666 >60 mL/min Summary Purpose eClinicalWorks Submission
--- OUTSIDE RECORDS SUMMARY | 2016-10-26 10:16 | XMS REPORT ---
Author Author Edith Taylor Organization [employer] Address Unknown Phone Unavailable Care Team Providers Care Muffler Tender Name Role Phone Edith Taylor CP Unavailable [...] Instructions Start Date End Date Status Dosage Danie [facility] [address]-69 30 MG Orally once a day in the morning 1 tablet Results No Known Results Summary Purpose eClinicalWorks Submission
--- OUTSIDE RECORDS SUMMARY | 2016-10-26 10:16 | XMS REPORT | Referral Summary ---
Author Author [facility] Organization [facility] Address Unknown Phone Unavailable Care Team Providers Care Director Agency & Strategic Partnerships Name Role Phone Tarik Stuart Primary Care Physician [phone] Encounter Date(s): 07/13/15 - 07/13/15 [facility], [address] [place] [address]- Discharge Diagnosis: Shortness of breath Discharge Diagnosis: Pneumonitis Discharge Diagnosis: Tobacco use Discharge Disposition: 01-Home or Self Care Attending Physician: Chani Osuna APRN Admitting Physician: Chani Osuna APRN Vital Signs Most recent to 1 oldest [Reference Range]: Temperature Tympanic 36.5 degC [36.6-38.1 degC] *LOW* (07/13/15 10:43 AM) Apical Heart Rate 87 bpm [60-100 bpm] (07/13/15 10:43 AM) Respiratory Rate 24 br/min [14-20 br/min] *HI* (07/13/15 10:43 AM) Blood Pressure 100/58 mmHg [90-140/60-90 mmHg] (07/13/15 10:43 AM) SpO2 86 % (07/13/15 10:43 AM) Problem List Condition Effective Dates Status [...] 0 Refill(s) Start Date: 05/05/14 Status: Ordered Lexapro 1 tabs, Oral, Daily, 0 Refill(s) Start Date: 07/13/15 Status: Ordered Percocet 10/325 oral tablet 1 tabs, Oral, q8hr, as needed for pain, # 50 tabs, 0 Refill(s) Start Date: 06/24/15 Status: Ordered prazosin 2 mg oral capsule 1 caps, Oral, Bedtime (once a day), 0 Refill(s) Start Date: 07/17/14 Status: Ordered predniSONE 10 mg oral tablet See Instructions, 4 tabs dly 3 days, 3 tabs dly 3 days, 2 tabs dly 3 days , 2 tabs dly 3 days, one tab dly 3 days then stop. with food, # 30 tabs, 0 Refill(s) Start Date: 07/13/15 Stop Date: 07/24/15 Status: Ordered Premarin 0.625 mg oral tablet See Instructions, TAKE 1 TABLET BY MOUTH EVERY DAY., # 30 unknown unit, 2 Refill (s), eRx: [facility] [id number], TAKE 1 TABLET BY MOUTH EVERY DAY. Start Date: 04/27/15 Status: Ordered Ventolin HFA 90 mcg/inh inhalation aerosol See Instructions, INHALE 2 PUFF BY INHALATION ROUTE EVERY 4 - 6 HOURS NEEDED , # 1 Each, 0 Refill(s), INHALE 2 PUFF BY INHALATION ROUTE EVERY 4 - 6 HOURS NEEDED Start Date: 07/13/15 Status: Ordered Zithromax Z-Robin 250 mg oral tablet 1 packets, Oral, Daily, as directed on package labeling, X 5 days, # 6 tabs, 0 Refill(s), Pharmacy: [facility] [id number], 1 packets Oral Daily,x5 days, Instr:as directed on package labeling Start Date: 07/13/15 Stop Date: 07/18/15 Status: Ordered Results No data available for [...] and Plan Extracted from: Title: Office Visit Author: Chani Osuna CUSTOMER ACCOUNTS ADVISOR Date: 07/13/15 Note-pneumonitis Assessment/Plan 1.Pneumonitis Chest x-ray obtained and reviewed. No infiltrates noted. Based on her symptoms and clinical findings will treat with Zithromax. Prednisone taper. Instructed on use and side effects. Take with food. Continue Robitussin or Mucinex as an expectorant. Recommend albuterol 2 puffs every 4-6 hours fairly routinely for the next few days. I would like to recheck her in 3-4 days. Sooner if not getting better. Ordered: Office Visit Level 4 Est 53097 2.Tobacco use Patient is cutting down to 2 cigarettes per day. Is planning to start class next week on smoking cessation. Ordered: Office Visit Level 4 Est 02093 3.Shortness of breath Ordered: Office Visit Level 4 Est 35791 Orders: albuterol, See Instructions, INHALE 2 PUFF BY INHALATION ROUTE EVERY 4 - 6 HOURS NEEDED, # 1 Each, 0 Refill(s), INHALE 2 PUFF BY INHALATION ROUTE EVERY 4 - 6 HOURS NEEDED azithromycin, 1 packets, Oral, Daily, as directed on package labeling, X 5 days, # 6 tabs, 0 Refill(s), Pharmacy: [facility] [id number], 1 packets Oral Daily,x5 days,Instr:as directed on package labeling predniSONE, See Instructions, 4 tabs dly 3 days, 3 tabs dly 3 days, 2 tabs dly 3 days, 2 tabs dly 3 days, one tab dly 3 days then stop. with food, # 30 tabs, 0 Refill(s)
--- OUTSIDE RECORDS SUMMARY | 2016-10-26 10:16 | XMS REPORT ---
Author Author Omi Rivera Organization [employer] Address Unknown Phone Unavailable Care Team Providers Care Foil Stamp Operator Name Role Phone Omi Rivera CP Unavailable [...] Instructions Start Date End Date Status Dosage Oxycodone-Acetaminophen [facility] [address]-37 10-325 MG Orally every 8 hours PRN for pain, december08-26-15. Sep 24, 2015 1 tablet as needed Results No Known Results Summary Purpose eClinicalWorks Submission
--- OUTSIDE RECORDS SUMMARY | 2016-10-26 10:16 | XMS REPORT ---
Author Author Edith Taylor [facility] eClinicalWorks Address Unknown Phone Unavailable Care Team Providers Care Box Car Bracer Name Role Phone Edith Taylor Unavailable Allergies No Known Allergies Problems Problem Type Condition ICD-9 Code Onset Dates Condition Status Problem Posttraumatic stress disorder 309.81 Active Problem Tobacco use disorder 305.1 Active Problem Bipolar I disorder, most recent episode (or current) mixed, moderate 296.62 Active Assessment Bipolar I disorder, most recent episode (or current) mixed, moderate 296.62 Active Problem Dissociative identity disorder 300.14 Active Problem Borderline personality disorder 301.83 Active Medications Medication Code System Code Instructions Start Date End Date Status Dosage Prazosin HCl [facility] [address]-21 2 MG Orally take by mouth at bedtime 1 capsule BusPIRone HCl [facility] [address]-07 15 MG Orally Twice a day 1 tablet Premarin [facility] [address]-82 0.625mg Orally daily - dosage unknown 1 tablet Vistaril [facility] [address]-53 50 MG Orally by mouth three times a day PRN for anxiety (Take with a 25mg cap to=75mg up to 3 times a day PRN only 1 capsule HydrOXYzine Pamoate [facility] [address]-21 25 MG Orally three times a day as needed - only for anxiety. Take with 50mg caps to equal 75mg three times daily 1 capsule Lamotrigine [facility] [address]-83 200 MG Orally Take by moth at 8am and H.S. for mood stabilization 1 tablet Abilify [facility] [address]-18 20 MG Orally once a day in the morning 1 tablet Ventolin HFA [facility] [address]-32 108 (90 Base) MCG/ACT Inhalation every 4 hrs 2 puffs as needed Oxycodone-Acetaminophen [facility] [address]-86 10-325 MG Orally three times daily PRN for pain 1 tablet as needed Lunesta [facility] [address]-26 3 MG Orally Once a day at bedtime 1 tablet immediately before bedtime Procedures Procedure Coding System Code Date COMPREHENSIVE METABOLIC PANEL CPT-4 29603 Sep 15, 2014 LIPID PANEL CPT-4 90624 Sep 15, 2014 COMPLETE CBC W/AUTO DIFF WBC CPT-4 95014 Sep 15, 2014 TSH WITH REFLEX T4 CPT-4 47613 Sep 15, 2014 HEPATIC FUNCTION PANEL CPT-4 89125 Sep 15, 2014 Results No Known Results Summary Purpose eClinicalWorks Submission
--- OUTSIDE RECORDS SUMMARY | 2016-10-26 10:16 | XMS REPORT | Summary of Care ---
Author Author Gary Jean M.D. Organization Unknown Address [address] [place] [address] [address], [place] [id number] Phone Unavailable Care Team Providers Care Garage Attendant Name Role Phone Gary Jean M.D. 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 * Refills: 0 Gary Jean M.D. * Start 15-Jul-2016 Active Lexapro 10 MG Oral Tablet TAKE 1 TABLET DAILY. * Refills: 0 Gary Jean M.D. * Start 15-Jul-2016 Active Allergies and Adverse Reactions Name Dates [...] unknown Vital Signs Date Test Result Details 29-Jul-2016 09:57 BP Systolic 142 mm[Hg] Status: Comments: Location: ; Position: BP Diastolic 90 mm[Hg] Status: Comments: Location: ; Position: Heart Rate 91 /min Status: Comments: Location: ; Height 65 in Status: Weight 145 lb Status: Body Mass Index Calculated 24.13 kg/m2 Status: Body Surface Area Calculated 1.73 m2 Status: Results Date Description Value Details Results not documented Plan of Care Name Dates Details Planned Observations Planned Goals not documented Planned Encounters Appointment; Provider: Gary Jean M.D. On 05-Aug-2016 09:30 Instructions Name Dates Details Instructions not documented Encounters Appointment; Gary Jean M.D. Encounter Diagnosis: Problem not documented On 29-Jul-2016 10:00
--- OUTSIDE RECORDS SUMMARY | 2016-10-26 10:16 | XMS REPORT ---
Author Author Edith Taylor Organization [employer] Address Unknown Phone Unavailable Care Team Providers Care Knitting Demonstrator Name Role Phone Edith Taylor CP Unavailable [...] Start Date End Date Status Dosage Vistaril [facility] [address]-17 50 MG Orally by mouth three times a day PRN for anxiety 1 capsule Prazosin HCl [facility] [address]-68 2 MG Orally take by mouth at bedtime 1-2 capsule Results No Known Results Summary Purpose eClinicalWorks Submission
--- OUTSIDE RECORDS SUMMARY | 2016-10-26 10:17 | XMS REPORT ---
Author Author Edith Taylor Organization [employer] Address Unknown Phone Unavailable Care Team Providers Care Display Department Manager Name Role Phone Edith Taylor CP Unavailable [...] Start Date End Date Status Dosage Danie [facility] [address]-26 30 MG Orally once a day in the morning 1 tablet Results No Known Results Summary Purpose eClinicalWorks Submission
--- OUTSIDE RECORDS SUMMARY | 2016-10-26 10:17 | XMS REPORT ---
Author Author Edith Taylor Organization [employer] Address Unknown Phone Unavailable Care Team Providers Care Physician Asst Name Role Phone Edith Taylor CP Unavailable Allergies No Known Allergies Problems Problem Type Condition Code Onset Dates Condition Status Problem Posttraumatic stress disorder 309.81 Active Problem Tobacco use disorder 305.1 Active Problem Bipolar I disorder, most recent episode (or current) mixed, moderate 296.62 Active Problem Dissociative identity disorder 300.14 Active Problem Borderline personality disorder 301.83 Active Medications Medication Code System Code Instructions Start Date End Date Status Dosage Lamotrigine [facility] [address]-75 200 MG Orally Take by mouth at 8am and H.S. for mood stabilization 1 tablet Results No Known Results Summary Purpose eClinicalWorks Submission
--- OUTSIDE RECORDS SUMMARY | 2016-10-26 10:17 | XMS REPORT ---
Author Author Edith Taylor Organization [employer] Address Unknown Phone Unavailable Care Team Providers Care Blender Conveyor Operator Name Role Phone Edith Taylor CP Unavailable [...] Start Date End Date Status Dosage Danie [facility] [address]-08 20 MG Orally once a day in the morning 1 tablet Results No Known Results Summary Purpose eClinicalWorks Submission
[2016-10-26] MEDS ORDERED: NORMAL SALINE 1,000 ML IV ONE (10:30)
[2016-10-26 10:43] LABS: HCT - HEMATOCRIT 43.7 % (36-46); HGB - HEMOGLOBIN 14.6 GM/DL (12-16); MEAN CORPUSCULAR HGB 30.4 UUG (26-34); MEAN CORPUSCULAR HGB CONC(MCHC 33.4 GM/DL (31-37); MEAN CORPUSCULAR VOLUME 90.9 UM3 (80-100); MEAN PLATELET VOLUME 10.3 UM3 (9.4-12.4); RED BLOOD COUNT 4.81 M/MM3 (4.00-5.20); WBC - WHITE BLOOD COUNT 19.6 T/MM3 (4.5-11.0)
--- NOTE | 2016-10-26 10:43 | NUR ---
ASSESS FEELS SOME BETTER AFTER RT AERO
[2016-10-26 10:53] LABS: ANION GAP 14 MEQ/L (5-15); BUN/CREATININE RATIO 16 RATIO (6-26); CALCIUM 9.6 MG/DL (8.4-10.2); CHLORIDE 100 MEQ/L (98-107); CO2 - CARBON DIOXIDE 25 MEQ/L (22-30); CREATININE 0.7 MG/DL (0.7-1.2); GLOMERULAR FILTRATION RATE 87; GLUCOSE 148 MG/DL (65-110); POTASSIUM 3.7 MEQ/L (3.6-5); SODIUM 139 MEQ/L (134-144)
[2016-10-26] MEDS ORDERED: BUSP15TA3 PO (10:55)
[2016-10-26] MEDS ORDERED: HYDR50CA5 PO (10:55)
[2016-10-26] MEDS ORDERED: ALBU18HF2 INH (10:55)
[2016-10-26] MEDS ORDERED: ARIP30TA11 PO (10:55)
[2016-10-26 10:56] LABS: INFLUENZA A AG SCREEN NEGATIVE (NEGATIVE); INFLUENZA B AG SCREEN NEGATIVE (NEGATIVE)
[2016-10-26] MEDS ORDERED: ESCI10TA47 PO (10:56)
[2016-10-26 11:01] LABS: PROBNP 389 PG/ML (0-175)
--- NOTE | 2016-10-26 11:12 | DI ---
Indication: ITS.REASON: dyspnea PROCEDURE: CHEST 1 VIEW: Encounter: Initial Comparison: June 01, 2010 Findings: Calcified granuloma again seen in the right upper lobe. Lungs are otherwise clear. No pleural effusion or pneumothorax. Heart size and mediastinal contours are within normal limits. Pulmonary vascularity is normal. Rounded sclerotic focus in the left proximal humeral diaphysis measuring 6 mm in size could represent a bone island. Cervical spinal fusion hardware again seen. Impression: No acute cardiopulmonary disease. .
--- NOTE | 2016-10-26 11:15 | NUR ---
STATUS PATIENT RESTING IN BED WITH NO DISTRESS NOTED. FAMILY AT BEDSIDE. PATIENT STATED, "I FEEL BETTER".
[2016-10-26 11:26] LABS: BAND NEUTROPHILS # 1.4 T/MM3; LYMPHOCYTES # (MANUAL) 1.6 T/MM3 (1-4.8); MONOCYTES # (MANUAL) 0.8 T/MM3 (0-0.8); NEUTROPHILS #(MANUAL)-ABSOLUTE 15.9 T/MM3 (1.8-7.7); TOTAL CELLS COUNTED 100 %
[2016-10-26 11:27] LABS: TOXIC GRANULATION 1+; TOXIC VACUOLATION 1+
--- NOTE | 2016-10-26 11:45 | NUR ---
ASSESSMENT PT DOESN'T FEEL MUCH BETTER. LUNGS DON'T SOUND ANY BETTER. PT AMB TO BR. SAO2 DROPPED TO 88% ON ROOM AIR. O2 RESTARTED & HAD TO BE INCREASED TO 3L/NC. MONITOR ST.
--- NOTE | 2016-10-26 11:55 | NUR ---
DR RENE IN
[2016-10-26] MEDS ORDERED: NORMAL SALINE 100 ML ONE (12:11)
[2016-10-26] MEDS ORDERED: IOHEXOL 350 MG/ML 75ml INJECTION ONE (12:11)
[2016-10-26] MEDS ORDERED: SALINE FLUSH 10ml SYRINGE ONE (12:11)
--- NOTE | 2016-10-26 12:27 | NUR ---
TO CT PER CART
--- NOTE | 2016-10-26 12:27 | NUR ---
ACTIVITY UP TO COMMODE.
--- NOTE | 2016-10-26 12:44 | NUR ---
RETURNED FROM CT
--- NOTE | 2016-10-26 12:45 | NUR ---
DR PATEL IN
[2016-10-26] MEDS ORDERED: CEFTRIAXONE 1 GRAM INJECTION IM ONE (13:00)
[2016-10-26] MEDS ORDERED: CEFTRIAXONE I.V. (ER USE ONLY) 1 G in NORMAL SALINE 100 ML IV ONE (13:00)
--- NOTE | 2016-10-26 13:01 | DI ---
Indication: ITS.REASON: Dyspnea / Hypoxemia PROCEDURE: CTA PULMONARY EMBOLI: Encounter: Initial Comparison: Chest x-ray from today Technique: Axial CT pulmonary angiographic phase images were performed through the chest after the administration of intravenous contrast. Coronal and Sagittal MIP reconstructed images were created and reviewed. Automated Exposure Control and Iterative Reconstruction dose reducing techniques were utilized. Contrast: Omnipaque 350 60 mL Findings: Pulmonary arteries: Exam is diagnostic to the subsegmental pulmonary arterial level. No filling defects identified to suggest a pulmonary embolus. Other findings: Respiratory motion artifact. Mild to moderate centrilobular emphysema. Calcified granuloma in the right upper lobe. Mild paraseptal emphysema. No consolidative pneumonia, pleural effusion or pneumothorax. No worrisome pulmonary nodule or mass. No axillary or mediastinal lymphadenopathy. Heart size is normal. No pericardial effusion. Great vessels are unremarkable. The upper abdomen shows no acute findings. Impression: No pulmonary embolus or acute intrathoracic disease process seen. Emphysema. .
--- OUTSIDE RECORDS SUMMARY | 2016-10-26 13:01 | XMS REPORT ---
Author Author Omi Rivera Organization [employer] Address Unknown Phone Unavailable Care Team Providers Care Conference Services Director Name Role Phone Omi Rivera CP Unavailable [...] Instructions Start Date End Date Status Dosage Premarin [facility] [address]-61 0.625mg Orally daily 1 tablet Results No Known Results Summary Purpose eClinicalWorks Submission
--- OUTSIDE RECORDS SUMMARY | 2016-10-26 13:01 | XMS REPORT ---
Author Author Edith Taylor Organization [employer] Address Unknown Phone Unavailable Care Team Providers Care Trim Die Maker Name Role Phone Edith Taylor CP Unavailable [...] Start Date End Date Status Dosage Danie [facility] [address]-24 30 MG Orally once a day in the morning 1 tablet Results No Known Results Summary Purpose eClinicalWorks Submission
--- OUTSIDE RECORDS SUMMARY | 2016-10-26 13:01 | XMS REPORT ---
Author Author Edith Taylor Organization [employer] Address Unknown Phone Unavailable Care Team Providers Care Executive Secretary Social Welfare Name Role Phone Edith Taylor CP Unavailable [...] Date End Date Status Dosage Vistaril [facility] [address]-27 50 MG Orally by mouth three times a day PRN for anxiety 1 capsule Results No Known Results Summary Purpose eClinicalWorks Submission
--- OUTSIDE RECORDS SUMMARY | 2016-10-26 13:01 | XMS REPORT ---
Author Author Edith Taylor Organization [employer] Address Unknown Phone Unavailable Care Team Providers Care Goldbeater Name Role Phone Edith Taylor CP Unavailable Allergies No Known Allergies Problems Problem Type Condition ICD-9 Code Onset Dates Condition Status Problem Posttraumatic stress disorder 309.81 Active Problem Tobacco use disorder 305.1 Active Problem Bipolar I disorder, most recent episode (or current) mixed, moderate 296.62 Active Problem Dissociative identity disorder 300.14 Active Problem Borderline personality disorder 301.83 Active Medications No Known Medications Results No Known Results Summary Purpose eClinicalWorks Submission
--- OUTSIDE RECORDS SUMMARY | 2016-10-26 13:02 | XMS REPORT ---
Author Author Edith Taylor [facility] eClinicalWorks Address Unknown Phone Unavailable Care Team Providers Care Tarper Name Role Phone Edith Taylor CP Unavailable Allergies, Adverse Reactions, Alerts Substance Reaction Event Type Septra Info Not Available Drug Allergy Codeine Sulfate side effects Drug Allergy Bactrim Info Not Available Drug Allergy Problems Problem Type Condition Code Onset Dates Condition Status Assessment Borderline personality disorder F60.3 Active Assessment Post-traumatic stress disorder, chronic F43.12 Active Assessment Dissociative identity disorder F44.81 Active Problem Bipolar disorder, current episode mixed, moderate F31.62 Active Problem Dissociative identity disorder F44.81 Active Problem Nicotine dependence, cigarettes, uncomplicated F17.210 Active Problem Post-traumatic stress disorder, chronic F43.12 Active Assessment Bipolar disorder, current episode mixed, moderate F31.62 Active Problem Borderline personality disorder F60.3 Active Problem Tobacco use disorder 305.1 Active Medications Medication Code System Code Instructions Start Date End Date Status Dosage Oxycodone-Acetaminophen [facility]NOTE 2] [address]-63 10-325 MG Orally three times daily PRN for pain 1 tablet as needed BusPIRone HCl [facility]NOTE 2] [address]-92 15 MG Orally Twice a day 1/2 tablet Trazodone HCl [facility]NOTE 2] [address]-81 50 MG Orally Once a day Jun 09, 2015 1-2 tablet at bedtime as needed Abilify [facility]NOTE 2] [address]-99 30 MG Orally once a day in the morning 1 tablet Prazosin HCl [facility]NOTE 2] [address]-76 2 MG Orally take by mouth at bedtime 1-2 capsule Lunesta [facility]NOTE 2] [address]-91 2 MG Orally Once a day at bedtime 1 tablet immediately before bedtime Ventolin HFA [facility]NOTE 2] [address]-03 108 (90 Base) MCG/ACT Inhalation every 4 hrs 2 puffs as needed Premarin [facility]NOTE 2] [address]-60 0.625mg Orally daily - dosage unknown 1 tablet Lamotrigine [facility]NOTE 2] [address]-87 200 MG Orally Take by mouth at 8am and H.S. for mood stabilization 1 tablet Lexapro [facility]NOTE 2] [address]-02 10 MG Orally Once a day Jun 09, 2015 1 tablet in the am for depression/anxiety Vistaril [facility]NOTE 2] [address]-58 50 MG Orally by mouth three times a day PRN for anxiety 1 capsule Procedures Procedure Coding System Code Date OFFICE VISIT, EST-MOD. COMPLEXITY (25 MIN) CPT-4 17390 Jun 09, 2015 Vital Signs Date/Time: Jun 09, 2015 Height 64.6 in Weight 131.8 lbs Temperature 98.6 F Blood Pressure Diastolic 88 mm Hg Blood Pressure Systolic 132 mm Hg Cardiac Monitoring Heart Rate 92 /min BMI 22.20 Index Respiratory Rate 20 /min Results No Known Results Summary Purpose eClinicalWorks Submission
--- OUTSIDE RECORDS SUMMARY | 2016-10-26 13:02 | XMS REPORT ---
Author Author Edith Taylor Organization [employer] Address Unknown Phone Unavailable Care Team Providers Care Optometric Assistant Name Role Phone Edith Taylor CP Unavailable [...]
--- OUTSIDE RECORDS SUMMARY | 2016-10-26 13:02 | XMS REPORT | Continuity of Care Document ---
Author Author [facility] Organization [facility] Address Unknown Phone Unavailable Allergies Medications Problems Procedures Results Encounters ACCT No. Visit Date/Time Discharge Status Pt. Type Provider Facility Loc./Unit Complaint [id number] 09/02/2015 00:00:00 2015 00:00:00 [facility] Emergency [facility] W.EDS
--- OUTSIDE RECORDS SUMMARY | 2016-10-26 13:02 | XMS REPORT ---
Author Author Omi Rivera Organization [employer] Address Unknown Phone Unavailable Care Team Providers Care Cook Dessert Name Role Phone Omi Rivera CP Unavailable Allergies, Adverse Reactions, Alerts Substance Reaction Event Type Septra Info Not Available Drug Allergy Codeine Sulfate side effects Drug Allergy Bactrim Info Not Available Drug Allergy Problems Problem Type Condition Code Onset Dates Condition Status Assessment Bipolar disorder, unspecified F31.9 Active Assessment Major depressive disorder, single episode, unspecified F32.9 Active Assessment Elevated blood-pressure reading, without diagnosis of hypertension R03.0 Active Assessment Encounter for immunization Z23 Active Assessment Encounter for screening mammogram for malignant neoplasm of breast Z12.31 Active Problem Bipolar disorder, current episode mixed, moderate F31.62 Active Problem Dissociative identity disorder F44.81 Active Problem Nicotine dependence, cigarettes, uncomplicated F17.210 Active Problem Post-traumatic stress disorder, chronic F43.12 Active Assessment Nicotine dependence, unspecified, uncomplicated F17.200 Active Problem Borderline personality disorder F60.3 Active Problem Tobacco use disorder 305.1 Active Medications Medication Code System Code Instructions Start Date End Date Status Dosage Ventolin HFA [facility] [address]-27 108 (90 Base) MCG/ACT Inhalation every 4 hrs 2 puffs as needed Trazodone HCl [facility] [address]-84 50 MG Orally Once a day Jun 09, 2015 1-2 tablet at bedtime as needed Abilify [facility] [address]-41 30 MG Orally once a day in the morning 1 tablet Lamotrigine [facility] [address]-41 200 MG Orally Take by mouth at 8am and H.S. for mood stabilization 1 tablet BusPIRone HCl [facility] [address]-50 15 MG Orally Twice a day 1/2 tablet Prazosin HCl [facility] [address]-42 2 MG Orally take by mouth at bedtime 1-2 capsule Lexapro [facility] [address]-24 10 MG Orally Once a day Jun 09, 2015 1 tablet in the am for depression/anxiety Vistaril [facility] [address]-05 50 MG Orally by mouth three times a day PRN for anxiety 1 capsule Oxycodone-Acetaminophen [facility] [address]-12 10-325 MG Orally three times daily PRN for pain 1 tablet as needed Premarin [facility] [address]-44 0.625mg Orally daily - dosage unknown 1 tablet Procedures Procedure Coding System Code Date FLU VACCINE NO PRESERV 3 & > CPT-4 37856 Aug 18, 2015 ADMINISTRATION, 1ST IMMUNIZATION CPT-4 03037 Aug 18, 2015 OFFICE VISIT, SEAM CLOSER-LOW COMPLEXITY (30 MIN.) CPT-4 89528 Aug 18, 2015 Vital Signs Date/Time: Aug 18, 2015 Height 64.6 in Weight 135.12 lbs Temperature 97.7 F Blood Pressure Diastolic 82 mm Hg Blood Pressure Systolic 140 mm Hg Cardiac Monitoring Heart Rate 97 /min BMI 22.76 Index Oximetry 97 % Respiratory Rate 16 /min Results No Known Results Immunizations Vaccine Administration Date Influenza shot 4 y.o. and older Aug 18, 2015 Summary Purpose eClinicalWorks Submission
--- OUTSIDE RECORDS SUMMARY | 2016-10-26 13:02 | XMS REPORT ---
Author Author Edith Taylor Organization [employer] Address Unknown Phone Unavailable Care Team Providers Care Surgical First Assistant Name Role Phone Edith Taylor CP [...]
--- OUTSIDE RECORDS SUMMARY | 2016-10-26 13:02 | XMS REPORT ---
Author Author Edith Taylor Organization [employer] Address Unknown Phone Unavailable Care Team Providers Care Senior Court Office Assistant Name Role Phone Edith Taylor CP [...] Start Date End Date Status Dosage Lexapro [facility] [address]-55 10 MG Orally Once a day Jun 09, 2015 1 tablet in the am for depression/anxiety Results No Known Results Summary Purpose eClinicalWorks Submission
--- OUTSIDE RECORDS SUMMARY | 2016-10-26 13:02 | XMS REPORT ---
Author Author Edith Taylor [facility] eClinicalWorks Address Unknown Phone Unavailable Care Team Providers Care Horse Trader Name Role Phone Edith Taylor CP Unavailable Allergies, Adverse Reactions, Alerts Substance Reaction Event Type Septra Info Not Available Drug Allergy Codeine Sulfate side effects Drug Allergy Bactrim Info Not Available Drug Allergy Problems Problem Type Condition Code Onset Dates Condition Status Assessment Borderline personality disorder 301.83 Active Assessment Tobacco use disorder 305.1 Active Assessment Dissociative identity disorder 300.14 Active Problem Posttraumatic stress disorder 309.81 Active Problem Tobacco use disorder 305.1 Active Problem Bipolar I disorder, most recent episode (or current) mixed, moderate 296.62 Active Assessment Bipolar I disorder, most recent episode (or current) mixed, moderate 296.62 Active Assessment Posttraumatic stress disorder 309.81 Active Problem Dissociative identity disorder 300.14 Active Problem Borderline personality disorder 301.83 Active Medications Medication Code System Code Instructions Start Date End Date Status Dosage Prazosin HCl [facility] [address]-91 2 MG Orally take by mouth at bedtime 1-2 caps Oxycodone-Acetaminophen [facility] [address]-88 10-325 MG Orally three times daily PRN for pain 1 tablet as needed Abilify [facility] [address]-49 20 MG Orally once a day in the morning 1 tablet BusPIRone HCl [facility] [address]-09 15 MG Orally Twice a day 1/2 tablet Premarin [facility] [address]-87 0.625mg Orally daily - dosage unknown 1 tablet Vistaril [facility] [address]-50 50 MG Orally by mouth three times a day PRN for anxiety (Take with a 25mg cap to=75mg up to 3 times a day PRN only 1 capsule HydrOXYzine Pamoate [facility] [address]-60 25 MG Orally three times a day as needed - only for anxiety. Take with 50mg caps to equal 75mg three times daily 1 capsule Lamotrigine [facility] [address]-03 200 MG Orally Take by moth at 8am and H.S. for mood stabilization 1 tablet Lunesta [facility] [address]-00 2 MG Orally Once a day at bedtime 1 tablet immediately before bedtime Ventolin HFA [facility] [address]-70 108 (90 Base) MCG/ACT Inhalation every 4 hrs 2 puffs as needed Procedures Procedure Coding System Code Date OFFICE VISIT, EST-MOD. COMPLEXITY (25 MIN) CPT-4 89374 November 25, 2014 Vital Signs Date/Time: November 25, 2014 Height 64.6 in Weight 139.4 lbs Temperature 98.7 F Blood Pressure Diastolic 72 mm Hg Blood Pressure Systolic 116 mm Hg Cardiac Monitoring Heart Rate 98 /min BMI 23.48 Index Respiratory Rate 20 /min Results No Known Results Summary Purpose eClinicalWorks Submission
[2016-10-26] MEDS: NORMAL SALINE 1,000 ML IV SCH (13:09)
--- NOTE | 2016-10-26 13:10 | NUR ---
IV SEEMS TO BE OCCLUDED. WILL HOLD ROCEPHIN UNTIL NEW SITE OBTAINED
--- NOTE | 2016-10-26 13:20 | NUR ---
REPORT TO ISAEL QUIGLEY
--- NOTE | 2016-10-26 13:25 | NUR ---
TRANSPORTED PER CART ON O2 TO RM 149. TOLERATED ACTIVITY WELL. STOOD TO TRANSFER. NOTED PT TO BE COUGHING LESS THAN UPON ARRIVAL. CARE ASSUMED BY ISAEL QUIGLEY
[2016-10-26] MEDS ORDERED: DOXYCYCLINE 100 MG in NORMAL SALINE 250 ML IV SCH (14:00)
[2016-10-26] MEDS ORDERED: ALBUTEROL/IPRATROPIUM INHAL. 2.5mg-0.5mg/3ml Neb. AEROSOL SCH (15:00)
[2016-10-26] MEDS: ACETAMINOPHEN 325 MG TABLET PO PRN (16:37)
--- NOTE | 2016-10-26 16:44 | NUR ---
ADMISSION NOTE PATIENT ARRIVED TO UNIT AT 1328 FROM ED, PRESENT AT BEDSIDE. PATIENT HAS IV IN RIGHT HAND WITH FLUIDS. PATIENT IS A&O X3, UP AD RYAN WITH NO ASSISTIVE DEVICES, AND ON A CARDIAC DIET. SCDS AND EDILMA HOSE ORDERED. PATIENT COMPLAINS OF FEELINGS OF WEAKNESS AND PAIN OF A 8/10 IN HER BACK AND HEAD. TELE AND UA ORDERED, RESPIRATORY PANEL COLLECTED. PRN PAIN MED GIVEN FOR PAIN IN HEAD AND BACK. PT ON O2 AT 3L. PT HAS A HX OF SMOKING. READING GLASSES LOCATED WITH PATIENT IN PURSE. PURSE AND BELONGINGS IN ROOM. PATIENT DID NOT BRING ANY HOME MEDS WITH HER AT THIS TIME. PATIENT IN HOSPITAL GOWN AND RESTING IN BED. ORIENTATED TO ROOM, CALL LIGHT, AND ORDERING SYSTEM. CELLPHONE AND METAL FURRER WITH PATIENT AT BEDSIDE. CALL LIGHT WITHIN REACH.
--- NOTE | 2016-10-26 17:00 | NUR ---
Received report Patient is resting in room with lights off and door closed. No concerns reported.
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
[2016-10-26 17:26] LABS: INR 0.98 (0.76-1.04); PROTHROMBIN TIME 10.7 SEC (9.31-12.49); PTT 34.4 SEC (24-36)
[2016-10-26 17:28] LABS: ALBUMIN/GLOBULIN RATIO 1.3 RATIO (1.1-2.2); ALKALINE PHOSPHATASE 85 U/L (38-126); ALT (SGPT) 32 U/L (9-52); AST (SGOT) 20 U/L (14-36); MAGNESIUM 1.8 MG/DL (1.6-2.3)
[2016-10-26 17:50] LABS: PHOSPHORUS 2.8 MG/DL (2.5-4.5)
[2016-10-26 18:14] LABS: BLOOD, URINE NEGATIVE (NEGATIVE); COLOR,URINE YELLOW (YELLOW); LEUKOCYTE ESTERASE ,URINE NEGATIVE (NEGATIVE); NITRITE,URINE NEGATIVE (NEGATIVE); UROBILINOGEN,URINE 0.2 EU/DL (NORMAL)
[2016-10-26] MEDS: DOXYCYCLINE 100 MG TABLET PO SCH (18:24)
[2016-10-26 18:25] LABS: BACTERIA,URINE TRACE (NEGATIVE); RBC,URINE 0-1 /HPF (0-3); SQUAMOUS EPITHELIAL CELL,UR 0-5
[2016-10-26] MEDS: NICOTINE 7 MG PATCH TD SCH (18:28)
--- NOTE | 2016-10-26 18:54 | NUR ---
EOS Patient is resting in bed with lights off. No apparent distress noted at this time. UA and sputum have been collected this evening.
--- NOTE | 2016-10-26 20:06 | NUR ---
Rests in bed. Coughing. Pt. reports cough productive of yellowish/greenish sputum sometimes. NS infuses at 75 cc/hr. Drinking water. Denies feeling nauseated. Afebrile at this time. Pt. does report having "hot flashes".
[2016-10-26] MEDS: ALBUTEROL/IPRATROPIUM INHAL. 2.5mg-0.5mg/3ml Neb. AEROSOL SCH (20:59)
[2016-10-26] MEDS: LAMOTRIGINE 200 MG TABLET PO SCH (21:50)
[2016-10-26] MEDS: PRAZOSIN 1 MG CAPSULE PO SCH (21:50)
[2016-10-26] MEDS: BENZONATATE 200 MG CAPSULE PO SCH (21:50)
[2016-10-27] VITALS (11 sets, daily range): BP systolic 128–151; BP diastolic 67–72; PULSE 93–119; RESP 18–20; TEMP 97–97.6; O2SAT 90–96
[2016-10-27] MEDS: ACETAMINOPHEN 325 MG TABLET PO PRN ×3 (00:22→18:28)
[2016-10-27] MEDS: HydrOXYzine 50 MG TABLET PO PRN ×2 (00:22→22:36)
--- NOTE | 2016-10-27 00:30 | NUR ---
TYLENOL 650 mg. given for H/A and Atarax 50 mg. given for anxiety. Assisted to bathroom.
[2016-10-27] MEDS: NORMAL SALINE 1,000 ML IV SCH ×3 (02:45→16:49)
[2016-10-27] MEDS: ALBUTEROL/IPRATROPIUM INHAL. 2.5mg-0.5mg/3ml Neb. AEROSOL SCH ×4 (03:05→20:45)
[2016-10-27 05:31] LABS: ALBUMIN 3.6 G/DL (3.5-5.0); ALBUMIN/GLOBULIN RATIO 1.2 RATIO (1.1-2.2); ALKALINE PHOSPHATASE 78 U/L (38-126); ALT (SGPT) 27 U/L (9-52); ANION GAP 10 MEQ/L (5-15); AST (SGOT) 20 U/L (14-36); BUN/CREATININE RATIO 25 RATIO (6-26); CALCIUM 9.3 MG/DL (8.4-10.2); CHLORIDE 108 MEQ/L (98-107); CO2 - CARBON DIOXIDE 22 MEQ/L (22-30); CREATININE 0.4 MG/DL (0.7-1.2); GLOMERULAR FILTRATION RATE 166; GLUCOSE 262 MG/DL (65-110); POTASSIUM 3.2 MEQ/L (3.6-5); SODIUM 140 MEQ/L (134-144); TOTAL PROTEIN 6.5 G/DL (6.3-8.2)
[2016-10-27 05:37] LABS: HCT - HEMATOCRIT 37.9 % (36-46); HGB - HEMOGLOBIN 12.8 GM/DL (12-16); MEAN CORPUSCULAR HGB 30.3 UUG (26-34); MEAN CORPUSCULAR HGB CONC(MCHC 33.8 GM/DL (31-37); MEAN CORPUSCULAR VOLUME 89.8 UM3 (80-100); MEAN PLATELET VOLUME 10.7 UM3 (9.4-12.4); RED BLOOD COUNT 4.22 M/MM3 (4.00-5.20); WBC - WHITE BLOOD COUNT 15.9 T/MM3 (4.5-11.0)
--- NOTE | 2016-10-27 06:30 | NUR ---
SHIFT SUMMARY: Slept well during the night after Tylenol and Atarax given. Recieves IV Solu Medrol q 6 hrs. IV fluids of NS infuse at 75 cc/hr. Cough continues. No chest pain c/o. Telemetry monitored. Sinus Rhythum.
[2016-10-27 06:35] LABS: BAND NEUTROPHILS # 1.1 T/MM3; LYMPHOCYTES # (MANUAL) 1.9 T/MM3 (1-4.8); MONOCYTES # (MANUAL) 0.2 T/MM3 (0-0.8); NEUTROPHILS #(MANUAL)-ABSOLUTE 12.7 T/MM3 (1.8-7.7); TOTAL CELLS COUNTED 100 %
--- NOTE | 2016-10-27 08:00 | NUR ---
Report received Patient is alert and oriented. Continues NS 75ml/hr per PIV at this time. NO concerns noted at this time.
[2016-10-27] MEDS: DOXYCYCLINE 100 MG TABLET PO SCH ×2 (08:26→18:25)
[2016-10-27] MEDS: ARIPIPRAZOLE 15 MG TABLET PO SCH (08:26)
[2016-10-27] MEDS: LAMOTRIGINE 200 MG TABLET PO SCH ×2 (08:27→21:11)
[2016-10-27] MEDS: ESCITALOPRAM 10 MG TABLET PO SCH (08:27)
[2016-10-27] MEDS: NICOTINE 7 MG PATCH TD SCH (08:27)
[2016-10-27] MEDS: BENZONATATE 200 MG CAPSULE PO SCH ×3 (08:27→21:11)
[2016-10-27] MEDS: NICOTINE PATCH REMOVAL TD SCH (08:29)
--- NOTE | 2016-10-27 09:36 | NUR ---
JEREMI BLOOD VISITED PT. CM EXPLAINED ROLE AND PROVIDED CONTACT INFORMATION. PT PLANS TO RETURN HOME POST HOSPITAL STAY. PT IS AWARE THAT IF SHE NEEDS OXYGEN AT THE TIME OF D/C FROM [facility] THAT CM WILL HELP SET UP OXYGEN NEEDS. PT IS AWARE TO CONTACT CM IF NEEDS ARISE.
[2016-10-27] MEDS ORDERED: CEFTRIAXONE 1 G in NORMAL SALINE 100 ML IV SCH (13:00)
[2016-10-27] MEDS ORDERED: POTASSIUM CHLORIDE 20 MEQ TABLET PO ONE ×2 (13:00→18:00)
--- NOTE | 2016-10-27 13:54 | PNPDOC ---
Subjective Date DATE: 10/27/16 TIME: 13:35 Subjective overall patient doing maybe a bit better. cough a little improved. SOA the same when off oxygen but when on oxygen she's fine. no had mild headache yesterday without other neurologic manifestations which resolved with tylenol. no headaches now. no photophobia or meningeal symptoms. mild runny nose and clear rhinorrhea but no other URI symptoms. no fevers, chills overnight. no changes in sputum production. no hemoptysis since admission or brown sputum either. no new or worsening orthopnea, PND, edema. no chest pain on rest or exertion. no dizziness, syncope, near syncope. no ab pain, GERD symptoms, nausea, vomiting, diarrhea, constipation, bloody/black stools, dysuria, hematuria, flank pain, other urinary symptoms. mood stable from yesterday. no hallucinations, delusions, guero symptoms, depression symptoms and steroids haven't effected her chronic psychiatric comorbidity to this point. no events called on telemetry. no new issues otherwise at this time. Objective Vital Signs Vital signs Vital Signs Date Time Temp Pulse Resp B/P Pulse Ox O2 Delivery O2 Flow Rate FiO2 10/27/16 10:01 104 10/27/16 09:54 12 95 10/27/16 08:00 97.0 129/72 Nasal Cannula 3.00 Telemetry Rhythm: Sinus Rhythm, Sinus Tachycardia Height (Feet): 5 Height (Inches): 5.00 Weight (Kilograms): 69.600 General General Appearance: Alert, Orientated x 3, Cooperative, No Acute Distress Eyes (Brief) Eyes: NOT FOUND: scleral icterus, trauma ENMT (Brief) Comments mucous membranes moist at this time. Neck (Brief) Neck: FOUND: midline, NOT FOUND: JVD, tracheal deviation Comments no clinical evidence of meningitis at this time. Respiratory (Brief) Respiratory: FOUND: clear all rothman, equal bilaterally, symmetrical, NOT FOUND : rales, spasm, tenderness, wheezes Comments no crackles b/l at this time. moving air well. lung sounds heard in all lung rothman b/l at this time. no respiratory distress, retractions, accessory muscle use. Cardiovascular (Brief) Comments stable from previous. no changes. clinically well perfused in all 4 extremities at this time. legs symmetrical and compartments soft in LE's b/l at this time. no clinical evidence of acute or worsening neurovascular compromise b/l in LE's at this time. Abdomen (Brief) Abdominal: FOUND: BS normo active x4, soft (X4.), NOT FOUND: distended, hepatosplenomegaly, pulsatile mass, tender (X4.) Comments no guarding, rebound, rigidity. (Brief) Comments no tenderness over bladder area. Extremities (Brief) Extremity : Comments see above. Lymphatic (Brief) Lymphatic: NOT FOUND: lymphedema Musculoskeletal (Brief) Musculoskeletal: FOUND: extremities move equally, NOT FOUND: deformity, loss of motion Integumentary (Brief) Integumentary: FOUND: dry, pink, warm, NOT FOUND: lesions, rash Comments to uncovered areas. Neurologic (Brief) Comments no focal deficits grossly. Psychiatric (Brief) Psychiatric: FOUND: alert, attentive, normal affect, oriented Laboratory Laboratory Laboratory Tests 10/26/16 10:24 10/27/16 04:29 Laboratory Tests 10/26/16 10:24 10/27/16 04:29 EKG no new information at this time. Microbiology Microbiology Microbiology Date/Time Source Procedure Growth Status 10/26/16 10:25 Peripheral/Iv Start Blood Culture - Preliminary NO GROWTH AFTER 24 HOURS Resulted 10/26/16 10:24 Peripheral/Iv Start Blood Culture - Preliminary NO GROWTH AFTER 24 HOURS Resulted 10/26/16 18:36 Sputum Expectorated Sputum Gram Stain - Final Resulted 10/26/16 18:36 Sputum Expectorated Sputum Sputum Culture - Preliminary CULTURE INITIATED - RESULTS PENDING Resulted Radiology no new information at this time. Sepsis Diagnostic Criteria Additional Information Comments see previous notes for details. Assessment & Plan Assessment acute hypoxic respiratory failure from acute on chronic COPD exacerbation acute bronchitis, fevers, leukocytosis secondary to the above. hypokalemia hyperthyroid brown sputum and concern for hemoptysis, none since admission. chronic tobaccoism -continue inpatient, routine vitals with call parameters, oxygen as needed, I's and O's, daily weights, activity up with assist, cardiac diet, telemetry. on 3 liters of oxygen and will continue to ween. -mg, phos, coags, LFT's, respiratory PCR unremarkable. TSH low at 0.08. cbc's with generally stable cytopenias. CMP's generally stable from previous. -sputum cx and gram stain, blood cultures X2, echocardiogram pending. -cbc, cmp, free T3 and free T4 in the AM. -check mg, phos, UA, coags, LFT's, TSH, respiratory PCR, sputum culture and gram stain now. see above for other testing and results from this stay. -cbc and cmp in the AM. -continue IV solumedrol at 60mg IV q8hrs for now. continue PO doxycycline, PO tessalon yen schmidt scheduled, incentive spirometry, nicotine patch. replacing potassium orally. -d/c rocephin for now as no clinical evidence of pneumonia. would consider restarting if any further evidence of pneumonia would appear. -continue to hold home albuterol inhaler. bipolar depression anxiety insomnia -continue home abilify, lamictal, lexapro, vistaril prn and prazosin. -will need to watch for worsening of psychiatric symptoms while on steroids above. right now she's well controlled. all other chronic medical conditions stable and no changes to plan of care at this time. ppx -SCD's for DVT ppx. given recent mention of hemoptysis will not start pharmacologic DVT ppx for now. -continue PO diet above for GI ppx. -FULL CODE -dispo continue inpatient today. Code Status DAVID HODGES DO Oct 27, 2016 13:41
--- NOTE | 2016-10-27 18:30 | NUR ---
EOS Patient has been resting quietly in room. Complained of HERNANDEZ most of the day. Received Tylenol but did not get entirely relieved. Patient had a persistent cough which the patient thinks is the basis of her headache. No new concern reported today. Report to oncoming nurse.
[2016-10-27] MEDS: PRAZOSIN 1 MG CAPSULE PO SCH (21:16)
[2016-10-28] VITALS (8 sets, daily range): BP systolic 133–156; BP diastolic 74–75; PULSE 94–99; RESP 18–22; TEMP 96.6–97.6; O2SAT 93–96
[2016-10-28] MEDS: ACETAMINOPHEN 325 MG TABLET PO PRN ×4 (00:25→18:13)
[2016-10-28] MEDS: ALBUTEROL/IPRATROPIUM INHAL. 2.5mg-0.5mg/3ml Neb. AEROSOL SCH ×4 (02:50→20:42)
[2016-10-28 05:36] LABS: HCT - HEMATOCRIT 35.7 % (36-46); HGB - HEMOGLOBIN 11.9 GM/DL (12-16); MEAN CORPUSCULAR HGB 30.2 UUG (26-34); MEAN CORPUSCULAR HGB CONC(MCHC 33.3 GM/DL (31-37); MEAN CORPUSCULAR VOLUME 90.6 UM3 (80-100); MEAN PLATELET VOLUME 10.7 UM3 (9.4-12.4); RED BLOOD COUNT 3.94 M/MM3 (4.00-5.20); WBC - WHITE BLOOD COUNT 17.8 T/MM3 (4.5-11.0)
[2016-10-28 05:42] LABS: ALBUMIN 3.3 G/DL (3.5-5.0); ALBUMIN/GLOBULIN RATIO 1.2 RATIO (1.1-2.2); ALKALINE PHOSPHATASE 68 U/L (38-126); ALT (SGPT) 34 U/L (9-52); ANION GAP 7 MEQ/L (5-15); AST (SGOT) 21 U/L (14-36); BUN/CREATININE RATIO 28 RATIO (6-26); CALCIUM 9.3 MG/DL (8.4-10.2); CHLORIDE 111 MEQ/L (98-107); CO2 - CARBON DIOXIDE 22 MEQ/L (22-30); CREATININE 0.4 MG/DL (0.7-1.2); GLOMERULAR FILTRATION RATE 166; GLUCOSE 201 MG/DL (65-110); POTASSIUM 4.3 MEQ/L (3.6-5); SODIUM 140 MEQ/L (134-144)
[2016-10-28 05:57] LABS: FREE T4 (FREE THYROXINE)-BATCH 1.21 NG/DL (0.78-2.19)
[2016-10-28 05:58] LABS: T3 FREE - BATCH 2.02 PG/ML (2.77-5.27)
[2016-10-28 06:14] LABS: BAND NEUTROPHILS # 2.3 T/MM3; LYMPHOCYTES # (MANUAL) 1.6 T/MM3 (1-4.8); MONOCYTES # (MANUAL) 0.4 T/MM3 (0-0.8); NEUTROPHILS #(MANUAL)-ABSOLUTE 13.5 T/MM3 (1.8-7.7); TOTAL CELLS COUNTED 100 %
--- NOTE | 2016-10-28 06:39 | NUR ---
SHIFT SUMMARY: PT A&OX3, PLEASANT AND COOPERATIVE. PT SLEPT ON AND OFF DURING THE NIGHT, PT STATES SHE GETS A HEADACHE WHEN COUGHING TOO MUCH (PRN PAIN MEDICATION GIVEN, SEE EMAR) ATARAX GIVEN FOR ANXIETY, WHICH HELPS PT TO SLEEP. PT IS UP AT RYAN AND IS NOW IV LOCKED. PT IS ON 3L NC AND BECOMES SOA WHEN UP. TELEMETRY IS SINUS. BED ALARM ON, CALL LIGHT WITHIN REACH.
[2016-10-28] MEDS ORDERED: GLUCOSE ORAL GEL 40% 37.5 G TUBE PO PRN (08:45)
[2016-10-28] MEDS ORDERED: DEXTROSE 50% SYRINGE 50ml (Eq. 1 AMP) IV PRN (08:45)
[2016-10-28] MEDS ORDERED: INSULIN LISPRO 100 UNIT/ML SQ PRN (08:45)
[2016-10-28] MEDS: NICOTINE 7 MG PATCH TD SCH (09:26)
[2016-10-28] MEDS: NICOTINE PATCH REMOVAL TD SCH (09:27)
[2016-10-28] MEDS: BENZONATATE 200 MG CAPSULE PO SCH ×3 (09:29→20:51)
[2016-10-28] MEDS: LAMOTRIGINE 200 MG TABLET PO SCH ×2 (09:29→20:51)
[2016-10-28] MEDS: ARIPIPRAZOLE 15 MG TABLET PO SCH (09:29)
[2016-10-28] MEDS: ESCITALOPRAM 10 MG TABLET PO SCH (09:29)
[2016-10-28] MEDS: DOXYCYCLINE 100 MG TABLET PO SCH ×2 (09:29→18:11)
[2016-10-28] MEDS: CEFTRIAXONE 1 G in NORMAL SALINE 100 ML IV SCH (09:30)
[2016-10-28] MEDS ORDERED: NS 500 ML IV PRN (09:45)
--- NOTE | 2016-10-28 11:24 | DI ---
Indication: ITS.REASON: bilateral thyroid ultrasound. PROCEDURE: US THYROID: Encounter: Initial Comparison: CT angiogram of the chest dated October 26, 2016 Technique: Grayscale and color Doppler sonographic imaging of the thyroid gland was performed. Findings: Thyroid isthmus is within normal limits at 0.4 cm in diameter. Right thyroid lobe is homogeneous without focal nodule or mass. Left lobe is also homogeneous without discrete mass. Normal Doppler flow to both thyroid lobes. Right lobe measures 4 x 1.2 x 1.6 cm. Left lobe measures 3.9 x 1.3 x 1.3 cm. Impression: Normal exam. .
--- NOTE | 2016-10-28 12:27 | PNPDOC ---
Subjective Date DATE: 10/28/16 TIME: 10:06 Subjective no acute issues overnight. no events called on telemetry. patient doing much better she says. has had headache on and off. bifrontal and on the top of the head to some degree. no photophobia, neck rigidity or meningeal symptoms. no numbness/weakness/tingling anywhere. no focal neurologic deficits, cranial nerve symptoms, stroke symptoms, seizure symptoms. these are average in intensity for her. tylenol does help. breathing much improved and she's down to 1 liter oxygen. energy improved. no ear pain, sinus pain, sore throat. no fevers, chills, body aches. fatigue improving. no dizziness, syncope, chest pain. she denies SOA at rest or exertion now. no hemoptysis. no brown sputum since admission. no changes otherwise in sputum production. no orthopnea, PND , heart failure symptoms. no orthopnea, PND. no ab pain, GERD symptoms, nausea , vomiting, diarrhea, constipation, bloody/black stools, dysuria, hematuria, urinary frequency, flank pain, nocturia, other urinary symptoms. appetite good and eating and drinking well. no new issues otherwise at this time. Objective Vital Signs Vital signs Vital Signs Date Time Temp Pulse Resp B/P Pulse Ox O2 Delivery O2 Flow Rate FiO2 10/28/16 09:40 100 10/28/16 09:40 Nasal Cannula 1.00 10/28/16 09:40 93 10/28/16 09:16 97.6 18 133/74 Telemetry Rhythm: Sinus Rhythm, Sinus Tachycardia Height (Feet): 5 Height (Inches): 5.00 Weight (Kilograms): 72.600 General General Appearance: Alert, Orientated x 3, Cooperative, No Acute Distress Eyes (Brief) Eyes: FOUND: EOMI, PERRL, NOT FOUND: scleral icterus, trauma Comments no nystagmus. ENMT (Brief) Comments euvolemic clinically at this time. Neck (Brief) Neck: FOUND: midline, NOT FOUND: JVD, tracheal deviation Comments no photophobia. no clinical evidence of meningitis at this time. Respiratory (Brief) Respiratory: FOUND: clear all rothman, equal bilaterally, symmetrical, NOT FOUND : rales, spasm, tenderness, wheezes Comments no crackles. all findings bilateral. no respiratory distress, retractions, accessory muscle use. moving air well. lung sounds heard in all lung rothman b/ l at this time. Cardiovascular (Brief) Comments no changes from previous. stable. no new edema. legs symmetrical and compartments soft in LE's b/l at this time. no evidence of acute or worsening neurovascular compromise b/l in LE's at this time. Abdomen (Brief) Abdominal: FOUND: BS normo active x4, soft (X4.), NOT FOUND: distended, hepatosplenomegaly, pulsatile mass, tender (X4.) Comments no guarding, rebound, rigidity. (Brief) Comments no tenderness over bladder area. Extremities (Brief) Extremity : Comments see above. Lymphatic (Brief) Lymphatic: NOT FOUND: lymphedema Musculoskeletal (Brief) Musculoskeletal: FOUND: extremities move equally, NOT FOUND: deformity, loss of motion Integumentary (Brief) Integumentary: FOUND: dry, pink, warm, NOT FOUND: lesions, rash Comments to uncovered areas. Neurologic (Brief) Neurological: FOUND: DTR 2/4 all extremities, cranial 2-12 intact, motor ( normal and symmetrical b/l X4.), sensory (normal and symmetrical b/l X4.), NOT FOUND: facial droop, ptosis Comments see the above HPI. Psychiatric (Brief) Psychiatric: FOUND: alert, attentive, normal affect, oriented Laboratory Laboratory Laboratory Tests 10/26/16 10:24 10/27/16 04:29 10/28/16 05:00 Laboratory Tests 10/26/16 10:24 10/27/16 04:29 10/28/16 05:00 EKG no new information at this time. Microbiology Microbiology Microbiology Date/Time Source Procedure Growth Status 10/26/16 10:25 Peripheral/Iv Start Blood Culture - Preliminary NO GROWTH AFTER 24 HOURS Resulted 10/26/16 10:24 Peripheral/Iv Start Blood Culture - Preliminary NO GROWTH AFTER 24 HOURS Resulted 10/26/16 18:36 Sputum Expectorated Sputum Gram Stain - Final Resulted 10/26/16 18:36 Sputum Expectorated Sputum Sputum Culture - Preliminary CULTURE INITIATED - RESULTS PENDING Resulted Radiology see above and below. Sepsis Diagnostic Criteria Additional Information Comments no new information at this time. Assessment & Plan Assessment acute hypoxic respiratory failure from acute on chronic COPD exacerbation acute bronchitis, fevers, leukocytosis secondary to the above. steroid induced hyperglycemia dilutional anemia hypokalemia tension headaches hyperthyroid brown sputum and concern for hemoptysis, none since admission. chronic tobaccoism -continue inpatient, routine vitals with call parameters, oxygen as needed, I's and O's, daily weights, activity up with assist, cardiac diet, telemetry. on 3 liters of oxygen and will ween. will ambulate TID with assist. -cbc's with generally stable leukocytosis but increased bands, a mild dilutional anemia and otherwise stable. cmp with normal potassium, sugars in 100's to 200's and otherwise unremarkable. free T3 a bit low and free T4 normal. sputum cx with moderate GPC's in chains and otherwise unremarkable. see above for other testing and results from this stay. -blood cultures X2 from admission negative thus far but still officially pending. echocardiogram pending. sputum cx pending also. thyroid u/s pending. -cbc and cmp in the AM. -decrease IV solumedrol to 60mg q12hrs now. start humolog s/s, GLUBS, hypoglycemia protocol. restart IV rocephin. continue PO doxycycline, tesyen dow scheduled, incentive spirometry, nicotine patch and replace electrolytes as is needed. continue PO tylenol prn headaches. no clinical evidence of neurologic or meningitis symptoms associated with her headaches right now. -continue to hold home albuterol inhaler. bipolar depression anxiety insomnia -continue home abilify, lamictal, lexapro, vistaril prn and prazosin. -will need to watch for worsening of psychiatric symptoms while on steroids above. right now she's well controlled. all other chronic medical conditions stable and no changes to plan of care at this time. ppx -SCD's for DVT ppx. no hemoptysis or questionable hemoptysis since admission. coags look ok on admission. CT chest without concerning lesion for cause of hemoptysis. will start SQ lovenox today for DVT ppx at prophylactic dose. -continue PO diet above for GI ppx. -FULL CODE -dispo continue inpatient today. continue to ween oxygen. discharge hopefully to home tomorrow. Code Status DAVID HODGES DO Oct 28, 2016 10:15
[2016-10-28] MEDS: ENOXAPARIN 40 MG/0.4 ML INJECTION SQ SCH (14:03)
--- NOTE | 2016-10-28 18:39 | NUR ---
END OF SHIFT REPORT PATIENT A/OX3. 0.5 L O2. VITAL SIGNS STABLE. AFEBRILE. UP AD [facility]YAN. ADEQUATE URINARY OUTPUT. BM DURING THE SHIFT. PATIENT HAS AMBULATED DURING THE SHIFT. PATIENT C/O HEADACHE. PRN TYLENOL HAS BEEN GIVEN FOR HEADACHE. WILL CONTINUE TO MONITOR.
[2016-10-28] MEDS: PRAZOSIN 1 MG CAPSULE PO SCH (20:58)
[2016-10-28] MEDS: HydrOXYzine 50 MG TABLET PO PRN (22:43)
[2016-10-28] MEDS ORDERED: MENTHOL COUGH DROPS (RICOLA) MM ONE (23:15)
--- NOTE | 2016-10-28 23:15 | NUR ---
COUGH DROP: PT REQUESTED COUGH MEDICINE. CONTACTED DR. HODGES. HE ASKED ME TO PLACE A ONE TIME ORDER FOR RICOLA COUGH DROP. ORDER PLACED.
[2016-10-29] VITALS (8 sets, daily range): BP systolic 155–172; BP diastolic 77–83; PULSE 79–97; RESP 17–18; TEMP 95.9–97; O2SAT 93–97
[2016-10-29] MEDS: ACETAMINOPHEN 325 MG TABLET PO PRN ×2 (02:44→10:54)
[2016-10-29] MEDS ORDERED: ALBUTEROL HFA INHALER 8gm ORAL INH SCH (03:00)
[2016-10-29 05:12] LABS: BASOPHILS % (AUTO) 0.1 % (0-2); HCT - HEMATOCRIT 38.3 % (36-46); HGB - HEMOGLOBIN 12.6 GM/DL (12-16); IMMATURE GRANULOCYTE # (AUTO) 0.07 T/MM3 (0.00-0.03); IMMATURE GRANULOCYTE % (AUTO) 0.5 % (0.0-0.5); LYMPHOCYTES # (AUTO) 1.8 T/MM3 (1-4.8); LYMPHOCYTES % (AUTO) 13.2 % (23-45); MEAN CORPUSCULAR HGB 29.8 UUG (26-34); MEAN CORPUSCULAR HGB CONC(MCHC 32.9 GM/DL (31-37); MEAN CORPUSCULAR VOLUME 90.5 UM3 (80-100); MEAN PLATELET VOLUME 10.4 UM3 (9.4-12.4); MONOCYTES # (AUTO) 0.5 T/MM3 (0-0.8); MONOCYTES % (AUTO) 3.5 % (0-9.0); NEUTROPHILS #(AUTO)-ABSOLUTE 11.1 T/MM3 (1.8-7.7); NEUTROPHILS % (AUTO) 82.7 % (33-66); RED BLOOD COUNT 4.23 M/MM3 (4.00-5.20); WBC - WHITE BLOOD COUNT 13.4 T/MM3 (4.5-11.0)
--- NOTE | 2016-10-29 05:16 | NUR ---
SHIFT SUMMARY: PT A&OX3, PLEASANT AND COOPERATIVE. PT SLEPT ON AND OFF DURING THE NIGHT, PT STATES SHE GETS A HEADACHE WHEN COUGHING TOO MUCH (PRN TYLENOL GIVEN, SEE EMAR); ATARAX GIVEN FOR ANXIETY, WHICH HELPS PT TO SLEEP. PT IS UP AT [facility] AND IS IV LOCKED. PT IS ON 0.5 L NC AND BECOMES SOA WHEN UP; ON TELEMETRY. CALL LIGHT WITHIN REACH.
[2016-10-29 05:17] LABS: ALBUMIN 3.6 G/DL (3.5-5.0); ALBUMIN/GLOBULIN RATIO 1.3 RATIO (1.1-2.2); ALKALINE PHOSPHATASE 66 U/L (38-126); ALT (SGPT) 30 U/L (9-52); ANION GAP 6 MEQ/L (5-15); AST (SGOT) 21 U/L (14-36); BUN/CREATININE RATIO 24 RATIO (6-26); CALCIUM 9.6 MG/DL (8.4-10.2); CHLORIDE 107 MEQ/L (98-107); CO2 - CARBON DIOXIDE 27 MEQ/L (22-30); CREATININE 0.5 MG/DL (0.7-1.2); GLOMERULAR FILTRATION RATE 129; GLUCOSE 146 MG/DL (65-110); POTASSIUM 4.2 MEQ/L (3.6-5); SODIUM 140 MEQ/L (134-144); TOTAL PROTEIN 6.3 G/DL (6.3-8.2)
[2016-10-29] MEDS: NICOTINE 7 MG PATCH TD SCH (08:30)
[2016-10-29] MEDS: NICOTINE PATCH REMOVAL TD SCH (08:30)
[2016-10-29] MEDS: ENOXAPARIN 40 MG/0.4 ML INJECTION SQ SCH (08:31)
[2016-10-29] MEDS: DOXYCYCLINE 100 MG TABLET PO SCH (08:32)
[2016-10-29] MEDS: LAMOTRIGINE 200 MG TABLET PO SCH (08:32)
[2016-10-29] MEDS: ESCITALOPRAM 10 MG TABLET PO SCH (08:32)
[2016-10-29] MEDS: ARIPIPRAZOLE 15 MG TABLET PO SCH (08:32)
[2016-10-29] MEDS: BENZONATATE 200 MG CAPSULE PO SCH ×2 (08:32→14:50)
[2016-10-29] MEDS: CEFTRIAXONE 1 G in NORMAL SALINE 100 ML IV SCH (08:40)
[2016-10-29] MEDS ORDERED: ALBUTEROL INH.SOLN. 2.5mg/3ml (0.083%) Neb. AEROSOL SCH (09:00)
--- NOTE | 2016-10-29 14:44 | NUR ---
shift summary Weaned off of o2 sats 92 to 94 on room air. has a loose sounding cough. ivl leaked after anitbiotic infusing.
--- NOTE | 2016-10-29 14:47 | NUR ---
DR mathew here r.t.to do a walking oximetry on room air prior to discharge.
[2016-10-29] MEDS ORDERED: HYDR25TA85 PO (15:31)
[2016-10-29] MEDS ORDERED: PRAZ1CAP2 PO (15:31)
[2016-10-29] MEDS ORDERED: ALBU18HF2 ORAL INH (15:31)
[2016-10-29] MEDS ORDERED: DOXY100T2 PO (15:31)
[2016-10-29] MEDS ORDERED: BENZ200C36 PO (15:31)
[2016-10-29] MEDS ORDERED: CEFU500T68 PO (15:31)
[2016-10-29] MEDS ORDERED: PRED10TA PO (15:31)
--- NOTE | 2016-10-29 15:45 | NUR ---
SCRIPTS CALLED TO [facility]
--- NOTE | 2016-10-29 15:53 | PNPDOC ---
Subjective Date DATE: 10/29/16 TIME: 15:32 Subjective patient doing well. feels mostly back to baseline. she denies headaches, stroke symptoms, syncope, dizziness. ambulating well. SOA essentially gone. no wheezing. no URI symptoms. no photophobia or meningeal symptoms. no chest pain on rest or exertion. no hemoptysis, heart failure symptoms. no fevers, chills, body aches. energy improving. X1 bowel movement since last visit which was normal. eating and drinking and appetite are ok. no ab pain, GERD symptoms, nausea, vomiting, diarrhea, constipation, bloody/black stools, dysuria , hematuria, urinary frequency, flank pain, nocturia. mood has been good. ROS negative for hallucinations, delusions, guero, depression. no psychiatric changes from previous baseline. no events called on telemetry. no new issues otherwise at this time. Objective Vital Signs Vital signs Vital Signs Date Time Temp Pulse Resp B/P Pulse Ox O2 Delivery O2 Flow Rate FiO2 10/29/16 15:30 169/80 10/29/16 15:27 95.9 84 18 94 Room Air 10/29/16 07:49 0.50 Telemetry Rhythm: Sinus Rhythm, Sinus Tachycardia Height (Feet): 5 Height (Inches): 5.00 Weight (Kilograms): 71.600 General General Appearance: Alert, Orientated x 3, Cooperative, No Acute Distress Eyes (Brief) Comments no scleral icterus or trauma. ENMT (Brief) Comments euvolemic clinically at this time. mucous membranes moist. Neck (Brief) Comments no JVD. no clinical evidence of meningitis and no photophobia at this time. Respiratory (Brief) Respiratory: FOUND: clear all rothman, equal bilaterally Comments no rales, crackles, wheezes b/l at this time. moving air well. lung sounds heard normally in all lung field b/l at this time. no respiratory distress, retractions, accessory muscle use. Cardiovascular (Brief) Comments no changes from previous exam. patient clinically well perfused in all 4 extremities b/l at this time. no leg edema b/l and legs symmetrical b/l at this time. compartments soft in LE's b/l at this time. Abdomen (Brief) Abdominal: FOUND: BS normo active x4, soft (X4.) Comments non-tender X4. no distension. no hepatosplenomegally. no masses. (Brief) Comments no tenderness over bladder area. Extremities (Brief) Extremity : Comments see above. Lymphatic (Brief) Comments no lymphedema. Musculoskeletal (Brief) Comments no deformity or loss of motion. extremities move normally bilaterally. Integumentary (Brief) Integumentary: FOUND: dry, pink, warm Comments no rash or lesions to uncovered areas at this time. Neurologic (Brief) Comments no focal deficits grossly. Psychiatric (Brief) Psychiatric: FOUND: alert, attentive, normal affect, oriented Comments no clinical evidence of guero, depression, psychosis, bipolar at this time. stable fro psychiatric standpoint as compared to previous. Laboratory Laboratory Laboratory Tests 10/28/16 05:00 10/29/16 04:35 Laboratory Tests 10/28/16 05:00 10/29/16 04:36 EKG no new information at this time. Microbiology Microbiology Microbiology Date/Time Source Procedure Growth Status 10/26/16 18:36 Sputum Expectorated Sputum Gram Stain - Final Resulted 10/26/16 18:36 Sputum Expectorated Sputum Sputum Culture - Preliminary CULTURE INITIATED - RESULTS PENDING Resulted Radiology no new information at this time. Sepsis Diagnostic Criteria Additional Information Comments see previous notes for details. Assessment & Plan Assessment acute hypoxic respiratory failure from acute on chronic COPD exacerbation acute bronchitis, fevers, leukocytosis secondary to the above. steroid induced hyperglycemia dilutional anemia hypokalemia tension headaches hyperthyroid brown sputum and concern for hemoptysis, none since admission. chronic tobaccoism -rest and exercise oximetry pending. pending this patient to be discharged to home. see discharge summary and orders for details. -cbc's with generally stable anemia and improving leukocytosis and resolved bandemia and otherwise unremarkable. cmp's and GLUBS with blood sugars in 100' s from steroids and otherwise unremarkable. thyroid ultrasound unremarkable. see above for other testing and results from this stay. -blood cultures X2 negative thus far as is sputum cx but still officially pending. echocardiogram pending. -convert IV solumedrol to PO prednisone taper. continue humolog s/s, GLUBS , hypoglycemia protocol while inpatient. convert PO rocephin to ceftin. continue PO doxycycline. continue tessalon perles but convert to prn. convert duonebs to albuterol inhaler prn. continue incentive spirometry while inpatient. continue nicotine patch as inpatient and patient consulted on tobacco cessation. continue PO tylenol prn headaches as inpatient. bipolar depression anxiety insomnia -continue home abilify, lamictal, lexapro, vistaril prn and prazosin. -psychiatric comorbidity has been stable while here. all other chronic medical conditions stable and no changes to plan of care at this time. ppx -SCD's and SQ lovenox for DVT ppx. no clinical evidence of hemoptysis at all since admission. -continue PO diet above for GI ppx. -FULL CODE -dispo discharge to home today pending the above. follow on rest and exercise oximetry. Code Status DAVID HODGES DO Oct 29, 2016 15:37
--- NOTE | 2016-10-29 16:05 | NUR ---
DISCHARGE TO HOME VSS. RA. DENIES PAIN. WALKING OXIMETRY DONE, PER RT NO HOME O2 IS NEEDED. DISCHARGE PAPERWORK DISCUSSED WITH PT AND FAMILY, VERBALIZED UNDERSTANDING. PATIENT WALKED TO FRONT ENTRANCE AND DROVE HOME BY .
--- NOTE | 2016-10-29 22:27 | DSF ---
MODE OF ADMISSION Inpatient ATTENDING PHYSICIAN Dr. Rivera of [facility] ADMITTING PHYSICIAN Dr. Rivera of [facility]. ANCILLARY SERVICES DURING THE STAY Respiratory Therapy did a rest and exercise oximetry study the day of discharge, and the patient required no oxygen on rest or exertion. CONSULTING PHYSICIANS DURING THE STAY There were none. DISCHARGE DIAGNOSES 1. Acute hypoxic respiratory failure from acute on chronic COPD exacerbation. 2. Acute bronchitis/early community-acquired pneumonia with fevers and leukocytosis secondary to the above. 3. Steroid-induced hyperglycemia. 4. Mild dilutional anemia. 5. Hypokalemia, resolved. 6. Tension headache. 7. Hyperthyroidism of uncertain etiology, likely secondary to acute illness. 8. Brown sputum previous to admission with concern for hemoptysis with none since admission. 9. Chronic tobaccoism. 10. Bipolar. 11. Depression. 12. Anxiety. 13. Insomnia. 14. Elevated blood pressure secondary to steroids most likely. DISCHARGE ORDERS 1. Patient discharged to home in stable and good condition now. 2. Discharge diet is cardiac and low sodium. 3. Discharge activity is as tolerated. FOLLOWUP APPOINTMENTS 1. Followup appointment with Dr. Rivera of [facility] in one week with a CMP and CBC done the day ahead of time and sent to him. 2. Patient was consulted to stop smoking and using tobacco during this stay. EXPECTED SIGNS/SYMPTOMS The patient's shortness of breath, wheezing, fevers, chills, and body ache should all continue to improve and eventually resolve. NOTIFY PHYSICIAN 1. Patient will return to care immediately if shortness of breath, wheezing, fevers, chills, body aches, hallucinations, delusions, pressured speech, impulsivity, depression, anxiety, abdominal pain, heartburn symptoms, or abnormal bleeding should occur. 2. Numbers given for contact of Dr. Rivera during business and after business hours. PAIN MANAGEMENT/TREATMENT 1. If the patient has any pain, she will let us know right away. WOUND/INCISION CARE This is not applicable. PATIENT INSTRUCTIONS 1. If the patient cannot afford her medications and/or make her appointments, she will let us know immediately. 2. If any issues worsen and/or new ones occur, she will be seen immediately. DURABLE MEDICAL EQUIPMENT This is not applicable. FOR PENDING LAB RESULTS AND TESTING The patient will follow with primary care. DISCHARGE MEDICATIONS 1. Ventolin HFA 90 mcg one to two puffs orally every 6 hours p.r.n. shortness of air for 30 days with five refills. 2. Tessalon Perles 200 mg p.o. every 8 hours p.r.n. cough/congestion x10 days. 3. Ceftin 500 mg p.o. every 12 hours x7 days with no refills. 4. Doxycycline 100 mg tablets one p.o. b.i.d. x6 more days. 5. Hydroxyzine 50 mg one tablet p.o. q.8h. p.r.n. anxiety/agitation. 6. Prazosin 1 to 2 mg p.o. at bedtime. 7. Prednisone taper. Patient will take 40 mg p.o. daily x3 days, and then take 30 mg p.o. daily x3 days, and then take 20 mg p.o. daily x3 days, and then take 10 mg p.o. daily x3 days, and then stop. Quantity sufficient given for this 12-day period with no refills. 8. Abilify 30 mg p.o. daily. 9. Lexapro 10 mg p.o. daily. 11. Lamictal 200 mg p.o. twice b.i.d. PERTINENT LABS DONE DURING THIS STAY The patient's white count was 19,600 coming in, with 7% bands. Bands did get as high as 13%, but the bands came down to normal by discharge. By discharge the patient's white blood cell count was 13,400. Rest of the patient's CBC was unremarkable except for a mild dip in hemoglobin the day before discharge to 11.9. This came up to 12.6 by discharge. Arterial blood gas on admission showed some mild hypoxemia. It was otherwise unremarkable. PTT and INR on admission were normal. Sodiums were normal throughout. Potassium did get as low as 3.2 and was replaced. It was normal by discharge. Chlorides, acid-base status, and kidney function were all normal throughout. Blood sugars were generally in the low-to-mid 100s while here with an outlier in the 200s. This was from the steroids. Other electrolytes including calcium, magnesium, and phosphorus were unremarkable while here. Liver functions tests were normal throughout. Troponin was normal on admission. Lactic acid, procalcitonin, and free T4 were all normal. TSH on admission was low at 0.08. Free T3 was low at 2.02. Urinalysis on admission showed a trace amount of bacteria with a trace amount of glucose and some ketones as well. Overall this was unremarkable. Respiratory virus PCR on admission including influenza was negative. Gram stain while here showed a moderate amount of gram-positive cocci in chains. It was otherwise unremarkable. Sputum culture is still officially pending. Blood cultures x2 were negative to date but still officially pending from admission. PERTINENT IMAGING WHILE HERE CT chest with pulmonary embolism protocol on admission showed no pulmonary embolism. There was no acute intrathoracic process or issue. It did show some changes consistent with chronic COPD. Chest x-ray: PA and lateral on admission showed no acute cardiopulmonary disease and was otherwise unremarkable. Thyroid ultrasound while here was normal on 10/28/2016. EKG on admission showed sinus tachycardia with heart rates in the 120s. This resolved shortly thereafter. Otherwise, the patient's EKG was essentially normal. The patient's echocardiogram that was done on 10/26/2016 is still pending. HISTORY OF PRESENT ILLNESS AND HOSPITAL COURSE This is a pleasant, 56-year-old female known to our clinic. She was last in her usual state of health Monday of last week. She started in with clear rhinorrhea and then progressed to fevers as high as 102.2. She also developed body aches, productive cough with yellow/green sputum, as well as some occasional brown/questionably red sputum. She was noted to be wheezy and progressively short of breath as well. An extensive imaging and laboratory evaluation was undertaken as is listed above, and it was decided to admit the patient to [facility]. Her white count was 20,000, with bandemia as listed above. She had crackles in her right lower lobe concerning for pneumonia. The imaging was not indicative of a pneumonia, but she was initially started on Rocephin and doxycycline. Please see above for the culture results. As she improved, she was taken off the Rocephin briefly however her bands spiked and she was restarted. She will be sent out on the courses of doxycycline and Ceftin as listed above. The patient was also started on IV steroids as well as incentive spirometry, Tessalon Perles, and DuoNeb. Over the course of the next several days, she improved quite a bit. She was initially on 3 liters of oxygen but was able to be weaned down to no oxygen by discharge. Rest and exercise oximetry from Respiratory Therapy showed the patient needed no oxygen. Symptomatically by discharge the patient was back to near her usual baseline and feeling better. Please see above for the pending results, which will be followed as an outpatient. Please see above for the discharge medications and further orders. She was consulted on smoking cessation while here. She had no further evidence of any brown or red-colored sputum while here, and this was likely from her intense cough coming in. The patient was on a nicotine patch while here. As noted, the patient was doing much better by discharge in this regard. The patient does have a history of bipolar, depression, anxiety, and insomnia. She was maintained on her home medications of Abilify, Lamictal, Lexapro, and Vistaril as well as Prazosin. Given she needed to be on the steroids, we watched her closely for any exacerbation or worsening of her psychiatric issues, but this never occurred. We will taper down her steroids as an outpatient and follow shortly in a week as is listed above. Dilutional anemia. This was from the IV fluids the patient got on admission. Hemoglobin came back up to normal by discharge and the patient had no clinical evidence of fluid overload. The patient was noted to have a low calcium on day 2. This was replaced and was normal throughout the rest of her stay. Patient did have some tension headaches while here. These were quelled reasonably well with Tylenol. In regards to the patient's hyperthyroidism, the TSH was 0.08. Free T3 and T4 as listed above as was her ultrasound. This can be followed further as an outpatient. Given the patient is on steroids, it would confound any further workup for pituitary issue anyway and, furthermore, it is not necessarily indicated. This will be further evaluated as an outpatient. She was largely asymptomatic in regards to this. In regards to the patient's blood pressures, these were elevated a little bit above her baseline. She had no symptoms of this and this will be followed as an outpatient. As she weans off her steroids, it is likely this will improve. All other chronic medical conditions stable and no changes to plan of care at this time. For DVT prophylaxis, the patient was initially put on SCDs. Given the patient's recent questionable hemoptysis, pharmacological DVT prophylaxis was not started initially but, once it became clear that she was not having any hemoptysis, she was started on subcutaneous Lovenox. She had no evidence of bleeding on the Lovenox. She tolerated this very well. The patient was maintained on her current old oral diet for GI prophylaxis. The patient was a FULL CODE while here. DISPOSITION Disposition is to home in stable and good condition. Please see the electronic medical record and orders for further details as there are details listed there. MTDD
--- NOTE | 2016-10-31 15:35 | NUR ---
CM CM LVM
--- NOTE | 2016-10-31 19:43 | ECHOF ---
DATE OF PROCEDURE October 26, 2016 the patient is Leonard. This is a two-dimensional echo with spectral Doppler, color-flow and M-mode. It was obtained in a patient with shortness of breath. Left atrial dimension is normal. Left ventricular end-diastolic dimension is normal. Left ventricular wall thickness is normal. LV systolic function is hyperdynamic with ejection fraction of about 75%. Right atrium is normal. Right ventricle is normal. Aortic root dimension is normal. Mitral, aortic, tricuspid, pulmonary valves are morphologically normal with trace of mitral and trace of pulmonary insufficiency. There is no pericardial effusion. IMPRESSION 1. Hyperdynamic left ventricle with ejection fraction of 75%. 2. Trace of mitral regurgitation. 3. Trace of pulmonary insufficiency. MTDD
== END 2016-10-29 16:05 | disposition home or self-care (01) | DRG 189 ==
LOC: ED 09:52 → EDHOLD 12:50 → MED 13:28
PROVIDERS: ADMIT Internal Medicine; ATTEND Internal Medicine
PROC: B32S1ZZ Computerized Tomography (CT Scan) of Right Pulmonary Artery using Low Osmolar Contrast (ICD-10-PCS; principal; 2016-10-26)
PROC: B32T1ZZ Computerized Tomography (CT Scan) of Left Pulmonary Artery using Low Osmolar Contrast (ICD-10-PCS; 2016-10-26)
PROC: B24BZZZ Ultrasonography of Heart with Aorta (ICD-10-PCS; 2016-10-26)
DX: J96.01 Acute respiratory failure with hypoxia (principal); J44.0 Chronic obstructive pulmonary disease with (acute) lower respiratory infection; J44.1 Chronic obstructive pulmonary disease with (acute) exacerbation; J20.9 Acute bronchitis, unspecified; F17.210 Nicotine dependence, cigarettes, uncomplicated; F31.9 Bipolar disorder, unspecified; F41.9 Anxiety disorder, unspecified; G47.00 Insomnia, unspecified; G44.209 Tension-type headache, unspecified, not intractable; E87.6 Hypokalemia; E05.90 Thyrotoxicosis, unspecified without thyrotoxic crisis or storm; T38.0X5A Adverse effect of glucocorticoids and synthetic analogues, initial encounter; D64.9 Anemia, unspecified; R73.9 Hyperglycemia, unspecified; R03.0 Elevated blood-pressure reading, without diagnosis of hypertension; Z79.899 Other long term (current) drug therapy
CPT/HCPCS: 36415; 80048; 80053; 80076; 81001; 82803; 82948; 83605; 83735; 83880; 84100; 84145; 84439; 84443; 84481; 84484; 85025; 85610; 85730; 87040; 87070; 87184; 87205; 87400; 87486; 87581; 87633; 87798; 93005; 93306; 94640; 94644; 94761; 96361; 96374; 99406

== ENCOUNTER → 2016-10-28 | Outpatient (CLI) | payer MEDICAID ==
[~2016-10-28] MED LIST changes: +ALBU18HF2 INH; +ALBU18HF2 ORAL INH; -ARIP20TA2 PO; +ARIP30TA11 PO; +BENZ200C36 PO; +CEFU500T68 PO; +DOXY100T2 PO; +ESCI10TA47 PO; -ESTR0.6261 PO; -ESZO3TAB PO; -HYDR-2122 PO; +HYDR25TA85 PO; +HYDR50CA5 PO; -OXYC1TAB PO; +PRAZ1CAP2 PO; -PRAZ2CAP26 PO; +PRED10TA PO
== END ==
LOC: IMA.BED 08:00
PROVIDERS: ATTEND Radiology Diagnostic Radiology
DX: Z53.8 Procedure and treatment not carried out for other reasons (principal)

== ENCOUNTER → 2016-11-25 | Outpatient (CLI) | payer MEDICAID ==
[~2016-11-25] MED LIST changes: -ALBU18HF2 INH; -HYDR50CA5 PO
[2016-11-28 01:04] LABS: T3 FREE - BATCH 7.38 PG/ML (2.77-5.27)
[2016-11-28 01:05] LABS: FREE T4 (FREE THYROXINE)-BATCH 1.12 NG/DL (0.78-2.19)
== END ==
LOC: LAB 08:20
PROVIDERS: ATTEND Internal Medicine
DX: R22.42 Localized swelling, mass and lump, left lower limb (principal); E03.9 Hypothyroidism, unspecified
CPT/HCPCS: 36415; 84439; 84443; 84481; 85379

== ENCOUNTER → 2016-11-25 | Outpatient (CLI) | payer MEDICAID ==
--- NOTE | 2016-11-25 15:47 | DI ---
Indication: ITS.REASON: R22.42 LOCALIZED SWELLING, MASS AND LUMP; R22.41 LOCALIZED SWELLI PROCEDURE: US VENOUS DUPLEX, LOWER EXT BI: Encounter: Initial Comparison: None Technique: Color Doppler duplex and grayscale sonographic imaging of both lower extremities was performed. Findings: There is no evidence for acute deep venous thrombosis in either thigh. Specifically, serial graded compression was performed from the inguinal ligament to the popliteal bifurcation, bilaterally, demonstrating appropriate compressibility of the deep venous system. In addition, color and pulsed Doppler demonstrate appropriate spontaneous flow, variation with respiration, and augmentation with calf compression. At the ankle, normal flow is identified in the posterior tibial veins; these vessels are also normal in caliber. Impression: No evidence of acute DVT in either lower limb. .
== END ==
LOC: IMA 15:16
PROVIDERS: ATTEND Internal Medicine
DX: R22.42 Localized swelling, mass and lump, left lower limb (principal); R22.41 Localized swelling, mass and lump, right lower limb